=== PATIENT | female | born 1950 | race Caucasian/White ===

== ENCOUNTER 2021-09-17 16:08 | Inpatient (IN) | payer OTHER ==
[~2021-09-17] VITALS: Ht 165.1 cm; Wt 112.9 kg
--- NOTE | 2021-09-17 16:21 | NUR ---
CALLED [facility] REGARDING PT VACCINATION STATUS AND WAS NOTIFIED THAT THE PT HAS MODERNA BOTHE GIVEN IN THE MONTH OF NOVEMBER
[2021-09-17] MEDS ORDERED: IV NS 0.9% 1,000 ML BAG IV ONE (16:30)
[2021-09-17 16:38] LABS: ABG OXYGEN SATURATION 94.8 % (92.0-98.5); ABG PCO2 46.6 mmHg (35.0-45.0); ABG PH 7.413 (7.350-7.450); ABG PO2 77.9 mmHg (75.0-100.0); AaDO2 124.7 mmHg; COHb 0.6 % (0.5-1.5); MetHb 0.3 % (0.0-1.5); O2Hb 93.9 % (94.0-97.0); SITE, ABG Left Radial; VENT MODE, BG NASAL CANNULA
--- NOTE | 2021-09-17 16:50 | NUR ---
COVID ANTIGEN AND PCR COLLECTED AND SENT TO LAB. PROGRAM OFFICER AT PT'S BEDSIDE
--- NOTE | 2021-09-17 16:51 | NUR ---
DRYLAND FARMER TAKING PT TO CT VIA [facility]
[2021-09-17] MEDS ORDERED: LACT10SO3 PO (16:59)
[2021-09-17] MEDS ORDERED: ZOLP10TA2 PO (16:59)
[2021-09-17] MEDS ORDERED: MULT-24 PO (16:59)
[2021-09-17] MEDS ORDERED: EZET10TA16 PO (16:59)
[2021-09-17] MEDS ORDERED: HYDR-4076 PO (16:59)
[2021-09-17] MEDS ORDERED: DOCU-141 PO (16:59)
[2021-09-17] MEDS ORDERED: MIRABEGRON PO (16:59)
[2021-09-17] MEDS ORDERED: ALPR1TAB2 PO (16:59)
[2021-09-17] MEDS ORDERED: ASPI-1169 PO (16:59)
[2021-09-17] MEDS ORDERED: MAGN400O6 PO (16:59)
[2021-09-17] MEDS ORDERED: ACET-2605 PO (16:59)
[2021-09-17] MEDS ORDERED: FERR325T23 PO (16:59)
[2021-09-17] MEDS ORDERED: BISA10SU11 RC (16:59)
[2021-09-17] MEDS ORDERED: LAMO100T17 PO (16:59)
[2021-09-17] MEDS ORDERED: TRAZ300T2 PO (16:59)
[2021-09-17] MEDS ORDERED: NA P133E RC (16:59)
[2021-09-17] MEDS ORDERED: LEVO50TA8 PO (16:59)
[2021-09-17] MEDS ORDERED: FURO-145 PO (16:59)
[2021-09-17] MEDS ORDERED: MAGN400T26 PO (16:59)
[2021-09-17] MEDS ORDERED: FLUO40CA49 PO (16:59)
[2021-09-17] MEDS ORDERED: PANT40TA2 PO (16:59)
[2021-09-17] MEDS ORDERED: POLY17PO4 PO (16:59)
[2021-09-17] MEDS ORDERED: TIOT18CA3 IH (16:59)
[2021-09-17] MEDS ORDERED: ARIP10TA57 PO (16:59)
[2021-09-17] MEDS ORDERED: SENN-261 PO (16:59)
[2021-09-17] MEDS ORDERED: OLAN2.5T3 PO (16:59)
[2021-09-17] MEDS ORDERED: ALBU2.5V38 IH (16:59)
[2021-09-17] MEDS ORDERED: ARIP20TA20 PO (16:59)
[2021-09-17] MEDS ORDERED: ACET-868 PO (16:59)
[2021-09-17] MEDS ORDERED: IPRA0.2S9 IH (16:59)
[2021-09-17] MEDS ORDERED: HEPA50008 SQ (16:59)
[2021-09-17] MEDS ORDERED: HYDR-4303 PO (16:59)
--- NOTE | 2021-09-17 17:02 | NUR ---
PT RETURNED FROM CT
[2021-09-17 17:10] LABS: BASOPHILS # (AUTO) 0.1 K/uL (0.0-0.2); BASOPHILS % (AUTO) 0.9 % (0.0-2.0); EOSINOPHILS % (AUTO) 0.3 % (0.0-6.0); HEMATOCRIT 27 % (33-45); HEMOGLOBIN 8.6 g/dL (11.5-14.8); LYMPHOCYTES # (AUTO) 1.1 K/uL (0.8-4.8); LYMPHOCYTES % (AUTO) 11.1 % (20.0-44.0); MEAN CORPUSCULAR HGB CONC 32 g/dl (31.0-36.0); MEAN CORPUSCULAR VOLUME 95 fL (82-100); MONOCYTES # (AUTO) 1.1 K/uL (0.1-1.30); MONOCYTES % (AUTO) 11.5 % (2.0-12.0); NEUTROPHILS # (AUTO) 7.3 K/uL (1.8-8.9); NEUTROPHILS % (AUTO) 76.2 % (43.0-81.0); PLATELET COUNT (AUTO) 360 K/uL (150-450); RED BLOOD CELL COUNT(AUTO) 2.82 MIL/uL (4.0-5.2); WHITE BLOOD COUNT (AUTO) 9.6 K/uL (4.3-11.0)
--- NOTE | 2021-09-17 17:15 | NUR ---
F/C 16FR INSERTED; URINE COLLECTED AND SENT TO LAB
[2021-09-17 17:28] LABS: ALANINE AMINOTRANSFERASE 24 U/L (12-78); ALKALINE PHOSPHATASE 76 U/L (46-116); ASPARTATE AMINOTRANSFERASE 25 U/L (15-37); BILIRUBIN,DIRECT 0.2 mg/dL (0.0-0.2); BILIRUBIN,TOTAL 0.4 mg/dL (0.2-1.0); CALCIUM, SERUM 9.4 mg/dL (8.5-10.1); CARBON DIOXIDE 28 mmol/L (21-32); CHLORIDE 106 mmol/L (98-107); CREATININE 2.1 mg/dL (0.6-1.3); GLUCOSE 91 mg/dL (74-106); POTASSIUM 4.7 mmol/L (3.5-5.1); SODIUM SERUM 143 mmol/L (136-145); TOTAL PROTEIN, SERUM 7.4 g/dL (6.4-8.2); UREA NITROGEN, BLOOD 27 mg/dL (7-18)
[2021-09-17] MEDS ORDERED: DEXAMETHASONE SOD PHOSPHATE 10 MG/ML VIAL IV ONE (18:00)
[2021-09-17] MEDS ORDERED: DEXAMETHASONE SOD PHOSPHATE 10 MG/ML VIAL ONE (18:13)
[2021-09-17 18:19] LABS: D-DIMER 0.7 mg/L(FEU (0.17-0.50)
[2021-09-17 18:23] LABS: BILIRUBIN,URINE NEGATIVE (NEGATIVE); COLOR,URINE YELLOW (YELLOW); LEUKOCYTE ESTERASE ,URINE MODERATE (NEGATIVE); NITRITE, URINE NEGATIVE (NEGATIVE); PROTEIN,URINE TRACE mg/dl (NEGATIVE); UGLUCOSE NEGATIVE (NEGATIVE); UROBILINOGEN,URINE 0.2 EU/dL (0.2)
[2021-09-17 18:50] LABS: BACTERIA,URINE Many /HPF (None Seen); SQUAMOUS EPITHELIAL CELL,UR Moderate /HPF (None Seen)
[2021-09-17 18:51] LABS: RBC,URINE 21-50 /HPF (0-2)
--- NOTE | 2021-09-17 18:56 | NUR ---
INFLUENZA SWAB COLLECTED AND SENT TO LAB
[2021-09-17 19:00] LABS: C-REACTIVE PROTEIN 7.8 mg/dL (0.0-0.9)
[2021-09-17] MEDS ORDERED: PIPERACILLIN /TAZOBACTAM 3.375 G in IV D5W 50 ML IV ONE (19:00)
--- NOTE | 2021-09-17 19:03 | NUR ---
SPUTUM CULTURE COLLECTED BY MAY NAVARRO AND RN SENT TO LAB
[2021-09-17] MEDS ORDERED: PIPERACILLIN /TAZOBACTAM 3.375 G VIAL IV ONE (19:31)
[2021-09-17] MEDS ORDERED: OLANZAPINE 2.5 MG TABLET PO PRN (22:30)
[2021-09-17] MEDS ORDERED: POLYETHYLENE GLYCOL 3350 17 GM POWD.PACK PO PRN (22:30)
[2021-09-17] MEDS ORDERED: ALBUTEROL FS 2.5 MG/3 ML VIAL.NEB IH PRN (22:30)
[2021-09-17] MEDS ORDERED: IPRATROPIUM NEB FS 0.5 MG/2.5 ML AMPUL.NEB IH PRN (22:30)
[2021-09-17] MEDS ORDERED: HEPARIN SODIUM, PORCINE 5000 UNITS/1 ML VIAL ONE (22:40)
[2021-09-17] MEDS: HEPARIN SODIUM, PORCINE 5000 UNITS/1 ML VIAL SQ SCH (22:50)
[2021-09-17] MEDS ORDERED: Z GUARD REMEDY 4 OZ OINT TP PRN (23:00)
[2021-09-17] MEDS ORDERED: ONDANSETRON HCL/PF 4 MG/2 ML VIAL IVP PRN (23:00)
[2021-09-17] MEDS ORDERED: CEFTRIAXONE 1GM BAG (ER ONLY) 50 ML IV ONE (23:57)
[2021-09-18] MEDS: CEFTRIAXONE 1 G in IV D5W 50 ML IV SCH ×2 (00:45→21:38)
--- NOTE | 2021-09-18 01:18 | NUR ---
PT TOLERATING O2 3LPM AT 97%. LAC #18G S/L PATENT AND INTACT. F/C PATENT AND INTACT. PT SLEEPING AT THIS TIME. ENDORSED CARE TO MELODY VU.
[2021-09-18] MEDS ORDERED: IPRATROPIUM NEB FS 0.5 MG/2.5 ML AMPUL.NEB NEB SCH (01:30)
--- NOTE | 2021-09-18 01:30 | NUR ---
held atrovent per RT due to positive covid status
[2021-09-18 05:31] LABS: BASOPHILS % (AUTO) 0.4 % (0.0-2.0); EOSINOPHILS % (AUTO) 0.1 % (0.0-6.0); HEMATOCRIT 30 % (33-45); HEMOGLOBIN 9.3 g/dL (11.5-14.8); LYMPHOCYTES # (AUTO) 1.1 K/uL (0.8-4.8); LYMPHOCYTES % (AUTO) 10.4 % (20.0-44.0); MEAN CORPUSCULAR HGB CONC 32 g/dl (31.0-36.0); MEAN CORPUSCULAR VOLUME 95 fL (82-100); MONOCYTES # (AUTO) 0.9 K/uL (0.1-1.30); MONOCYTES % (AUTO) 7.9 % (2.0-12.0); NEUTROPHILS # (AUTO) 8.8 K/uL (1.8-8.9); NEUTROPHILS % (AUTO) 81.2 % (43.0-81.0); PLATELET COUNT (AUTO) 393 K/uL (150-450); RED BLOOD CELL COUNT(AUTO) 3.09 MIL/uL (4.0-5.2); WHITE BLOOD COUNT (AUTO) 10.8 K/uL (4.3-11.0)
[2021-09-18 05:42] LABS: CARBON DIOXIDE 29 mmol/L (21-32); CHLORIDE 106 mmol/L (98-107); CREATININE 1.8 mg/dL (0.6-1.3); GLUCOSE 118 mg/dL (74-106); MAGNESIUM 2.6 mg/dL (1.8-2.4); PHOSPHORUS 4.7 mg/dL (2.5-4.9); POTASSIUM 4.9 mmol/L (3.5-5.1); SODIUM SERUM 143 mmol/L (136-145); UREA NITROGEN, BLOOD 26 mg/dL (7-18)
[2021-09-18 05:45] LABS: CHOLESTEROL 232 mg/dL (<200); HDL CHOLESTEROL 51 mg/dL (40-60); LDL 154 mg/dL (0-99); TRIGLYCERIDES 93 mg/dL (30-150)
[2021-09-18 05:46] LABS: C-REACTIVE PROTEIN 10.6 mg/dL (0.0-0.9)
[2021-09-18] MEDS ORDERED: LEVOTHYROXINE SODIUM 50 MCG TABLET PO SCH (07:30)
[2021-09-18] MEDS: PANTOPRAZOLE 40 MG TABLET.DR PO SCH (07:46)
[2021-09-18] MEDS ORDERED: PANTOPRAZOLE 40 MG VIAL ONE (07:47)
[2021-09-18] MEDS ORDERED: LEVOTHYROXINE SODIUM 25 MCG TABLET ONE (07:47)
[2021-09-18] MEDS ORDERED: PANTOPRAZOLE 40 MG TABLET.DR PO ONE (07:48)
[2021-09-18] MEDS ORDERED: IPRATROPIUM BROMIDE 14 GM INHALER (or 12.9 GM) IH PRN (08:00)
[2021-09-18] MEDS ORDERED: ALBUTEROL SULFATE 8 GM HFA.AER.AD IH PRN (08:30)
[2021-09-18] MEDS ORDERED: MIRABEGRON 50 MG PO SCH (09:00)
[2021-09-18] MEDS ORDERED: DEXAMETHASONE SOD PHOSPHATE 10 MG/ML VIAL ONE (09:47)
[2021-09-18] MEDS ORDERED: ASPIRIN 81 MG TAB.CHEW ONE (09:48)
[2021-09-18] MEDS ORDERED: EZETIMIBE 10 MG TABLET ONE (09:48)
[2021-09-18] MEDS ORDERED: MULTIVIT W/MINERALS 1 TAB TABLET ONE (09:48)
[2021-09-18] MEDS ORDERED: DOCUSATE SODIUM 100 MG CAPSULE PO ONE (09:48)
[2021-09-18] MEDS ORDERED: HEPARIN SODIUM, PORCINE 5000 UNITS/1 ML VIAL ONE (09:49)
[2021-09-18] MEDS: HEPARIN SODIUM, PORCINE 5000 UNITS/1 ML VIAL SQ SCH ×2 (10:11→21:36)
[2021-09-18] MEDS: MULTIVITAMINS,THERAGRAN 1 UDTAB TABLET PO SCH (10:11)
[2021-09-18] MEDS: hydrALAZINE HCL 25 MG TABLET PO SCH ×3 (10:11→16:36)
[2021-09-18] MEDS: LamoTRIgine 100 MG TABLET PO SCH ×2 (10:11→16:36)
[2021-09-18] MEDS: DEXAMETHASONE SOD PHOSPHATE 4 MG/ML VIAL IV SCH (10:11)
[2021-09-18] MEDS: EZETIMIBE 10 MG TABLET PO SCH (10:11)
[2021-09-18] MEDS: DOCUSATE SODIUM 100 MG CAPSULE PO SCH ×2 (10:11→16:36)
[2021-09-18] MEDS: ASPIRIN 81 MG TAB.CHEW PO SCH (10:11)
[2021-09-18] MEDS: MAGNESIUM OXIDE 400 MG TABLET PO SCH ×2 (10:11→16:36)
[2021-09-18] MEDS: FERROUS SULFATE (325 MG) 325 MG/TAB TABLET PO SCH ×2 (10:11→16:33)
[2021-09-18] MEDS ORDERED: FUROSEMIDE 40 MG/4 ML VIAL IV ONE (10:30)
[2021-09-18] MEDS ORDERED: FUROSEMIDE 40 MG/4 ML VIAL ONE (11:11)
--- NOTE | 2021-09-18 12:30 | NUR ---
PT TRANSFERRED TO [facility]. BEDSIDE REPORT GIVEN TO CAROLANN VU FOR MERY. VSS.
--- NOTE | 2021-09-18 12:45 | NUR ---
RN ADMITTING NOTES RECEIVED PATIENT AWAKE, ALERT/ORIENTED X 2 WITH DX OF ALOC. VITAL SIGNS- TEMP-100.6, IA-76, RR-20, O2-91%, BP-141/57. PATIENT DENIES PAIN AT THE TIME. BREATHING EVEN AND UNLABORED, NO SOB OR ANY ACUTE DISTRESS NOTED AT THE TIME. PATIENT ON O2 4LPM VIA NC. IV ACCESS ON RIGHT HAND G#22, FLUSHED WELL, PATENT AND INTACT. PATIENT NOTED WITH BRUISES ON BILATERAL UPPER EXTREMITIES AND ABODMEN, SKIN TEAR ON RIGHT FOREARM AND REDNESS ON COCCY SCAR ON RIGHT BREST, ABSENCE OF NIPPLE. PHOTOS TAKEN AND PRINTED OUT. PATIENT ON FERNANDEZ CATH 16FR, PATENT AND INTACT DRAINING WELL. NO BELONGINGS WITH PATIENT. ALL NEEDS ATTENDED. KEPT PATIENT CLEAN, DRY AND COMFORTABLE. ALL SAFETY MEASURES IN PLACE. HOB ELEVATED BED IN LOWEST POSITION AND LOCKED WITH SIDERAILS UP. CALL LIGHT WITHIN REACH OF PATIENT. ALL APPLICABLE ISOLATION PRECAUTIONS IN PLACE. WILL CONTINUE TO MONTIOR PATIENT ACCORDINGLY.
[2021-09-18 16:00] VITALS: BP 158/67
--- NOTE | 2021-09-18 16:06 | NUR ---
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 INFORMED LISSETH STOCK SAW OPERATOR WITH ORDER FOR BACTROBAN OINT BID, NOTED AND CARRIED OUT.
--- NOTE | 2021-09-18 18:59 | NUR ---
RN CLOSING NOTES PT IN BED AWAKE, ALERT/OREITNED X 2. BREATHING EVEN AND UNLABORED NO SOB OR ANY DISTRESS NOTED. ON O2 4L/MIN VIA NC, TOLERATING WELL 92% . PATIENT IN STABLE CONDITION THROUGHOUT SHIFT. DENIES ANY PAIN AT THE TIME. IV ACCESS ON RIGHT HAND #22G INTACT AND PATENT. NO S/S OF INFILTRATIONS. ALL DUE MEDS GIVEN ORDERED. KEPT PATIENT CLEAN, DRY AND COMFORTABLE. ALL NEEDS MET AND ATTENDED. FERNANDEZ CATH INTACT AND PATENT W/ YELLOWISH/URINE. 1000 ML OF URINE. ALL APPLICABLE ISOLATIONS PRECAUTIONS IN PLACE. ALL SAFETY MEASURE IN PLACE. BED LOCKED AND IN LOW POSITION WITH SIDERAILS UP. CALL LIGHT WITHIN REACH OF PATIENT WILL ENDORSE TO ONCOMING NURSE FOR CONTINUITY OF CARE.
--- NOTE | 2021-09-18 19:10 | NUR ---
RN NOTES RECEIVED REPORT FROM MORNING RN. PATIENT IN BED A/O X2 WITH PERIODS OF CONFUSION. WITH IV ACCESS ON R HAND # 22 PATENT FLUSHES WELL. NS @ 50CC/HR STARTED. VITAL SIGNS TAKEN AND RECORDED NO DISTRESS NO SOB NOTED AFEBRILE. WITH FERNANDEZ CATHETED CONNECTED TPO URINE BAG PATENT DRAINING YELLOWISH URINE OUTPUT. PATIENT ON ISOLATION FOR COVID 19 RAPID TEST POSITIVE, MRSA POSITIVE. ALL SAGFETY PREACUTION IN PLACE AT ALL TIMES. HOB ELEVATED, CALL LIGHT WITHIN REACH. BOTH SIDERAILS UP FOR SAFETY. BED ON LOWEST POSITION AND LOCKED. WILL CONTINUE TO MONITOR.
[2021-09-18] MEDS: IPRATROPIUM BROMIDE 14 GM INHALER (or 12.9 GM) NEB SCH (19:30)
[2021-09-18 20:00] VITALS: BP 117/55
[2021-09-18] MEDS: IV NS 0.9% 1,000 ML IV PRN (20:09)
[2021-09-18] MEDS: MUPIROCIN OINT 2% 22 GM TUBE NS SCH (21:36)
[2021-09-19] VITALS: BP 102/56
[2021-09-19 04:00] VITALS: BP 111/61
[2021-09-19 06:10] LABS: BASOPHILS % (AUTO) 0.3 % (0.0-2.0); EOSINOPHILS % (AUTO) 0.4 % (0.0-6.0); HEMATOCRIT 24 % (33-45); HEMOGLOBIN 7.9 g/dL (11.5-14.8); LYMPHOCYTES # (AUTO) 0.7 K/uL (0.8-4.8); LYMPHOCYTES % (AUTO) 9.2 % (20.0-44.0); MEAN CORPUSCULAR HGB CONC 33 g/dl (31.0-36.0); MEAN CORPUSCULAR VOLUME 94 fL (82-100); MONOCYTES # (AUTO) 0.7 K/uL (0.1-1.30); MONOCYTES % (AUTO) 9.1 % (2.0-12.0); NEUTROPHILS # (AUTO) 6.1 K/uL (1.8-8.9); PLATELET COUNT (AUTO) 290 K/uL (150-450); RED BLOOD CELL COUNT(AUTO) 2.57 MIL/uL (4.0-5.2); WHITE BLOOD COUNT (AUTO) 7.6 K/uL (4.3-11.0)
[2021-09-19 06:31] LABS: ALANINE AMINOTRANSFERASE 24 U/L (12-78); ALBUMIN 2.6 g/dL (3.4-5.0); ALKALINE PHOSPHATASE 61 U/L (46-116); ASPARTATE AMINOTRANSFERASE 34 U/L (15-37); BILIRUBIN,DIRECT 0.1 mg/dL (0.0-0.2); BILIRUBIN,TOTAL 0.3 mg/dL (0.2-1.0); CALCIUM, SERUM 8.9 mg/dL (8.5-10.1); CARBON DIOXIDE 30 mmol/L (21-32); CHLORIDE 107 mmol/L (98-107); CREATININE 1.8 mg/dL (0.6-1.3); GLUCOSE 94 mg/dL (74-106); SODIUM SERUM 144 mmol/L (136-145); TOTAL PROTEIN, SERUM 6.8 g/dL (6.4-8.2); UREA NITROGEN, BLOOD 30 mg/dL (7-18)
--- NOTE | 2021-09-19 06:42 | NUR ---
RN NOTES PATIENT IN BED NO SIGNIFICANT CHANGES IN HEALTH CONDITION STILL ON OXYGEN INHALATION AT 4LPM VIA NC SATING 98%. STILL WITH FERNANDEZ INTACT. ALL DUE MEDS GIVEN ORDERED. ALL NEEDS ATTENDED. ALL SAFETY ,MEASURES IN PLACE AT ALL TIMES. HOB ELEVATED. CALL LIGHT WITHIN REACH. FREQUENT VISUAL MONITORING RENDERED. WILL CONTINUE TO MONITOR. ENDORSED.
--- NOTE | 2021-09-19 07:31 | NUR ---
RN MORNING NOTE PT RECEIVED IN BED WITH HOB SEMI FOWLERS. PT IS ON 4L O2 VIA NC SAT 98%. PT IS A/OX2 WITH PERIODS OF CONFUSION. PT HAS FC AND IS IN PLACE DRAINING URINE BY GRAVITY. PT IS ON CARDIAC LOW FAT DIET AND HAS IV ACCESS R HAND 22G INFUSING WITH NS @50ML/HR. BED IS LOCKED IN LOWEST POSITION X3 GUARD RAILS UP, CALL FOX IS WITHIN REACH, AND ALL HOSPITAL SAFETY PRECAUTIONS ARE IN PLACE. WILL CONTINUE TO MONITOR THIS SHIFT.
[2021-09-19 08:00] VITALS: BP 110/55
[2021-09-19] MEDS: LEVOTHYROXINE SODIUM 25 MCG TABLET PO SCH (08:17)
[2021-09-19] MEDS: PANTOPRAZOLE 40 MG TABLET.DR PO SCH (08:17)
[2021-09-19] MEDS: LamoTRIgine 100 MG TABLET PO SCH ×2 (08:18→17:28)
[2021-09-19] MEDS: MULTIVITAMINS,THERAGRAN 1 UDTAB TABLET PO SCH (08:18)
[2021-09-19] MEDS: FERROUS SULFATE (325 MG) 325 MG/TAB TABLET PO SCH ×2 (08:18→17:28)
[2021-09-19] MEDS: EZETIMIBE 10 MG TABLET PO SCH (08:18)
[2021-09-19] MEDS: DEXAMETHASONE SOD PHOSPHATE 4 MG/ML VIAL IV SCH (08:19)
[2021-09-19] MEDS: MAGNESIUM OXIDE 400 MG TABLET PO SCH ×2 (08:19→17:35)
[2021-09-19] MEDS: DOCUSATE SODIUM 100 MG CAPSULE PO SCH ×2 (08:19→17:28)
[2021-09-19] MEDS: MUPIROCIN OINT 2% 22 GM TUBE NS SCH ×2 (08:22→20:49)
[2021-09-19] MEDS: ASPIRIN 81 MG TAB.CHEW PO SCH (08:26)
--- NOTE | 2021-09-19 08:26 | NUR ---
RN NOTE ASPIRIN OMNICELL DRAWER CLOSED BEFORE i COULD TAKE OUT MEDICATION. LOGGED BACK INTO OMNICELL TO PULL OUT ASPIRIN. ONLY ONE ASPIRIN WAS TAKEN OUT FOR PT.
[2021-09-19] MEDS: hydrALAZINE HCL 25 MG TABLET PO SCH ×3 (09:00→17:00)
[2021-09-19] MEDS: HEPARIN SODIUM, PORCINE 5000 UNITS/1 ML VIAL SQ SCH ×2 (09:00→20:49)
--- NOTE | 2021-09-19 11:57 | NUR ---
RN NOTE PT HAS TEMP OF 100.3. TYLENOL ADMINISTERED.
[2021-09-19] MEDS: ACETAMINOPHEN 325 MG TABLET PO PRN (11:58)
[2021-09-19 12:00] VITALS: BP 119/44
[2021-09-19 16:00] VITALS: BP 92/52
[2021-09-19] MEDS: IV NS 0.9% 1,000 ML IV PRN (17:41)
--- NOTE | 2021-09-19 18:56 | NUR ---
RN CLOSING NOTE PT IS RESTING IN BED WITH HOB IN HIGH FOWLERS. PT IS ON 4L O2 VIA NC SAT 98%. PT IS A/OX3 WITH PERIODS OF CONFUSION. PT HAS FC AND IS IN PLACE DRAINING URINE BY GRAVITY. PT IS ON CARDIAC LOW FAT DIET AND HAS NEW R UA MIDLINE 18G MIDLINE INFUSING WITH NS @50ML/HR. BED IS LOCKED IN LOWEST POSITION X3 GUARD RAILS UP, CALL FOX IS WITHIN REACH, AND ALL HOSPITAL SAFETY PRECAUTIONS ARE IN PLACE. WILL ENDORSE TO CHIEF ENGINEER RESEARCH NURSE FOR MERY.
--- NOTE | 2021-09-19 19:30 | NUR ---
RN OPENING NOTE RECEIVED PATIENT IN BED. A/OX3. ON OXYGEN 4L/MIN VIA NASAL CANNULA. RESPIRATIONS ARE EVEN AND UNLABORED. NO S/S SOB NOTED. NO C/O PAIN AT THIS TIME. TELE MONITOR SINUS RHYTHM HR 80S. IN NO APPARENT DISTRESS. IV ACCESS IN TEN MIDLINE RUNNING NS@50ML/HR. FERNANDEZ CATHETER IS PRESENT DRAINING TO GRAVITY, URINE IS YELLOW. BED IS LOW AND LOCKED, HOB ELEVATED IN HIGH FOWLERS, SIDE RIAL CUSTODIAL X3, CALL LIGHT WITHIN REACH.
[2021-09-19 20:00] VITALS: BP 109/55
[2021-09-19] MEDS: IPRATROPIUM BROMIDE 14 GM INHALER (or 12.9 GM) NEB SCH (20:48)
--- NOTE | 2021-09-19 22:04 | NUR ---
RN NOTE - TRANSFER OF CARE REPORT GIVEN TO KARRI RN FOR CONTINUATION OF CARE.
--- NOTE | 2021-09-19 22:30 | NUR ---
RN OPENING NOTE RECEIVED PATIENT IN BED. A/OX3. ON OXYGEN 4L/MIN VIA NASAL CANNULA. RESPIRATIONS ARE EVEN AND UNLABORED. NO S/S SOB NOTED. NO C/O PAIN AT THIS TIME. TELE MONITOR SINUS RHYTHM IN 80S. PATIENT ON COVID ISOLATION PRECAUTIONS. ALL ENVIRONMENTAL MEASURES TAKEN. IN NO APPARENT DISTRESS. IV ACCESS IN TEN MIDLINE RUNNING NS@50ML/HR. FERNANDEZ CATHETER IS PRESENT DRAINING TO GRAVITY, URINE IS YELLOW. BED IS LOW AND LOCKED, HOB ELEVATED IN HIGH FOWLERS, SIDE RAILS UP X3, CALL LIGHT WITHIN REACH.
[2021-09-19] MEDS: CEFTRIAXONE 1 G in IV D5W 50 ML IV SCH (23:30)
[2021-09-20] VITALS: BP 119/63
[2021-09-20] MEDS: IPRATROPIUM BROMIDE 14 GM INHALER (or 12.9 GM) NEB SCH ×4 (01:30→21:18)
[2021-09-20 04:00] VITALS: BP 130/63
[2021-09-20 06:38] LABS: BASOPHILS % (AUTO) 0.2 % (0.0-2.0); EOSINOPHILS % (AUTO) 1.3 % (0.0-6.0); HEMATOCRIT 23 % (33-45); HEMOGLOBIN 7.6 g/dL (11.5-14.8); LYMPHOCYTES # (AUTO) 0.6 K/uL (0.8-4.8); LYMPHOCYTES % (AUTO) 10.2 % (20.0-44.0); MEAN CORPUSCULAR HGB CONC 33 g/dl (31.0-36.0); MEAN CORPUSCULAR VOLUME 94 fL (82-100); MONOCYTES # (AUTO) 0.4 K/uL (0.1-1.30); MONOCYTES % (AUTO) 7.7 % (2.0-12.0); NEUTROPHILS # (AUTO) 4.6 K/uL (1.8-8.9); NEUTROPHILS % (AUTO) 80.6 % (43.0-81.0); PLATELET COUNT (AUTO) 251 K/uL (150-450); RED BLOOD CELL COUNT(AUTO) 2.45 MIL/uL (4.0-5.2); WHITE BLOOD COUNT (AUTO) 5.7 K/uL (4.3-11.0)
[2021-09-20 07:10] LABS: CALCIUM, SERUM 8.4 mg/dL (8.5-10.1); CARBON DIOXIDE 26 mmol/L (21-32); CHLORIDE 108 mmol/L (98-107); CREATININE 1.5 mg/dL (0.6-1.3); GLUCOSE 89 mg/dL (74-106); POTASSIUM 4.2 mmol/L (3.5-5.1); SODIUM SERUM 144 mmol/L (136-145); UREA NITROGEN, BLOOD 30 mg/dL (7-18)
--- NOTE | 2021-09-20 07:18 | NUR ---
RN CLOSING NOTE PT IS RESTING IN BED WITH HOB IN HIGH FOWLERS. PT IS ON 4L O2 VIA NC SAT 96%. PT IS A/OX3 WITH PERIODS OF CONFUSION. PT HAS FC AND IS IN PLACE DRAINING URINE BY GRAVITY. TEN 50/ML HR NO CHANGES DURING SHIFT, ALL ISOLATION AND SAFETY MEASURES TAKEN. WILL ENDORSE TO ONCOMING NURSE FOR PLAN OF CARE.
--- NOTE | 2021-09-20 07:24 | NUR ---
RN OPENING NOTE RECEIVED PT RESTING IN BED A/0 X2-3 WITH PERIODS OF CONFUSION PT IS ON 4L O2 VIA NC SAT 96%. TELE READING SR HR72, PT HAS A FERNANDEZ CATH IN PLACE AND BELOW THE PT, DRAINING YELLOW URINE BY GRAVITY. TEN RUNNING 50/ML HR , ISOLATION PRECAUTIONS IN PLACE, SAFETY MEASURES IMPLEMENTED BED LOCKED AND IN LOWEST POSITION CALL LIGHT WISHING, REACH WILL CONTINUE TO MONITOR.
[2021-09-20 08:00] VITALS: BP 151/47
[2021-09-20] MEDS: PANTOPRAZOLE 40 MG TABLET.DR PO SCH (08:57)
[2021-09-20] MEDS: LEVOTHYROXINE SODIUM 25 MCG TABLET PO SCH (08:58)
[2021-09-20] MEDS: ASPIRIN 81 MG TAB.CHEW PO SCH (08:58)
[2021-09-20] MEDS: FERROUS SULFATE (325 MG) 325 MG/TAB TABLET PO SCH ×2 (08:58→16:10)
[2021-09-20] MEDS: MULTIVITAMINS,THERAGRAN 1 UDTAB TABLET PO SCH (08:58)
[2021-09-20] MEDS: MAGNESIUM OXIDE 400 MG TABLET PO SCH ×2 (08:58→16:10)
[2021-09-20] MEDS: hydrALAZINE HCL 25 MG TABLET PO SCH ×3 (08:58→16:10)
[2021-09-20] MEDS: LamoTRIgine 100 MG TABLET PO SCH ×2 (08:58→16:10)
[2021-09-20] MEDS: DOCUSATE SODIUM 100 MG CAPSULE PO SCH ×2 (08:58→16:10)
[2021-09-20] MEDS: EZETIMIBE 10 MG TABLET PO SCH (08:58)
[2021-09-20] MEDS: DEXAMETHASONE SOD PHOSPHATE 4 MG/ML VIAL IV SCH (08:59)
[2021-09-20] MEDS: MUPIROCIN OINT 2% 22 GM TUBE NS SCH ×2 (09:08→21:17)
[2021-09-20] MEDS: HEPARIN SODIUM, PORCINE 5000 UNITS/1 ML VIAL SQ SCH ×2 (09:08→21:36)
--- NOTE | 2021-09-20 10:30 | NUR ---
RN NOTE PER DOCTOR IS OK TO HOLD COUMADIN INR 5.38
[2021-09-20 12:00] VITALS: BP 147/41
[2021-09-20] MEDS: DOXYCYCLINE 100 MG in IV D5W 100 ML IV SCH ×2 (15:32→21:16)
[2021-09-20 16:00] VITALS: BP 134/49
[2021-09-20] MEDS ORDERED: REMDESIVIR (CHARGED) 200 MG, *LOADING DOSE 1 EA in IV NS 0.9% 210 ML IV ONE (17:00)
[2021-09-20] MEDS: IV NS 0.9% 1,000 ML IV PRN (18:23)
--- NOTE | 2021-09-20 18:41 | NUR ---
RN CLOSING NOTE PT REMAINS RESTING IN BED A/0 X2-3 WITH PERIODS OF CONFUSION PT IS ON 4L O2 VIA NC SAT 96%. BREATHING EVEN AND UNLABORED, TELE READING SR HR72, PT HAS A FERNANDEZ CATH IN PLACE AND BELOW THE PT, DRAINING YELLOW URINE BY GRAVITY OUT PUT 1400. TEN RUNNING SN 50/ML HR , REMDESIVIR STARTED AND TOLERATED WELL, ISOLATION PRECAUTIONS IN PLACE, SAFETY MEASURES IMPLEMENTED BED LOCKED AND IN LOWEST POSITION CALL LIGHT WITHIN, REACH WILL ENDORSE TO HAND SALTERDOORPERSON OR LUGGAGE PORTER
--- NOTE | 2021-09-20 19:43 | NUR ---
RN NOTE RECEIVED PATIENT IN BED, AWAKE, ALERT, AND VERBALLY RESPONSIVE. AOX2. BREATHING NOTED WITH MILD SHORTNESS OF BREATH. ON OXYGEN AT 4L/MIN VIA NASAL CANNULA. SKIN WARM AND DRY. NOTED WITH RIGHT UPPER ARM MIDLINE RUNNING NS AT 50 ML/HR. NOTED WITH FERNANDEZ CATHETER DRAINING YELLOW URINE. NO BLEEDING NOTED AT THIS TIME. BED LOW, IN LOCKED POSITION. CALL LIGHT WITHIN REACH.
[2021-09-20 20:00] VITALS: BP 148/73
--- NOTE | 2021-09-20 21:01 | NUR ---
RN NOTE RIGHT UPPER ARM MIDLINE FLUSHES WITH RESISTANCE. NO BLOOD RETURN DESPITE ARM REPOSITIONING. INSERTED PERIPHERAL IV 22G ON RIGHT WRIST. PATENT WITH GOOD BLOOD RETURN. CONTINUED TO RUN NORMAL SALINE AT 50 CC/HR. NO INFILTRATION NOTED AT THIS TIME WILL CONTINUE TO MONITOR.
--- NOTE | 2021-09-20 21:20 | NUR ---
RN NOTE PATIENT COMPLAINING OF FEELING NAUSEA. NO EMESIS PRESENT. ADMINISTERED ZOFRAN PER MD OVER VIA IV PUSH. PROVIDED WITH EMESIS BASIN. HOB ELEVATED. WILL CONTINUE TO MONITOR.
[2021-09-20] MEDS: CEFTRIAXONE 1 G in IV D5W 50 ML IV SCH (22:49)
[2021-09-21] VITALS: BP 121/59
[2021-09-21] MEDS: IPRATROPIUM BROMIDE 14 GM INHALER (or 12.9 GM) NEB SCH ×4 (01:30→20:20)
[2021-09-21 04:00] VITALS: BP 121/57
[2021-09-21] MEDS: IV NS 0.9% 1,000 ML IV PRN (05:56)
--- NOTE | 2021-09-21 07:30 | NUR ---
RN NOTE RECEIVED PT RESTING IN BED A/0 X2-3 WITH PERIODS OF CONFUSION PT IS ON 4L O2 VIA NC SAT 96%. TELE READING SR HR72, PT HAS A FERNANDEZ CATH IN PLACE AND BELOW THE PT, DRAINING YELLOW URINE BY GRAVITY. RIGHT UPPER ARM MIDLINE FLUSHES WITH RESISTANCE. NO BLOOD RETURN DESPITE ARM REPOSITIONING. R WRIST RUNING AT 50/ML HR , ISOLATION PRECAUTIONS IN PLACE, SAFETY MEASURES IMPLEMENTED BED LOCKED AND IN LOWEST POSITION CALL LIGHT WISHING, REACH WILL CONTINUE TO MONITOR.
[2021-09-21] MEDS: PANTOPRAZOLE 40 MG TABLET.DR PO SCH (07:52)
[2021-09-21] MEDS: LEVOTHYROXINE SODIUM 25 MCG TABLET PO SCH (07:52)
[2021-09-21 08:00] VITALS: BP 103/31
[2021-09-21] MEDS: HEPARIN SODIUM, PORCINE 5000 UNITS/1 ML VIAL SQ SCH ×2 (08:01→21:26)
[2021-09-21] MEDS: ASPIRIN 81 MG TAB.CHEW PO SCH (08:01)
[2021-09-21] MEDS: DOCUSATE SODIUM 100 MG CAPSULE PO SCH ×2 (08:02→16:56)
[2021-09-21] MEDS: MAGNESIUM OXIDE 400 MG TABLET PO SCH ×2 (08:02→16:56)
[2021-09-21] MEDS: LamoTRIgine 100 MG TABLET PO SCH ×2 (08:02→16:56)
[2021-09-21] MEDS: EZETIMIBE 10 MG TABLET PO SCH (08:02)
[2021-09-21] MEDS: FERROUS SULFATE (325 MG) 325 MG/TAB TABLET PO SCH ×2 (08:02→16:56)
[2021-09-21] MEDS: MUPIROCIN OINT 2% 22 GM TUBE NS SCH ×2 (08:03→21:25)
[2021-09-21] MEDS: hydrALAZINE HCL 25 MG TABLET PO SCH ×3 (08:05→16:57)
[2021-09-21] MEDS: DEXAMETHASONE SOD PHOSPHATE 10 MG/ML VIAL IV SCH (08:08)
[2021-09-21] MEDS: DOXYCYCLINE 100 MG in IV D5W 100 ML IV SCH ×2 (08:08→21:25)
[2021-09-21] MEDS: MULTIVITAMINS,THERAGRAN 1 UDTAB TABLET PO SCH (08:14)
--- NOTE | 2021-09-21 09:00 | NUR ---
RN NOTE HOLD HYDRALAZINE DUE TO LOW BP 103/31 AND HR 57, NOTIFIED CHARGE NURSE MARY ELLEN
[2021-09-21 09:03] LABS: BASOPHILS % (AUTO) 0.4 % (0.0-2.0); EOSINOPHILS % (AUTO) 1.4 % (0.0-6.0); HEMATOCRIT 24 % (33-45); HEMOGLOBIN 7.6 g/dL (11.5-14.8); LYMPHOCYTES # (AUTO) 0.8 K/uL (0.8-4.8); LYMPHOCYTES % (AUTO) 11.6 % (20.0-44.0); MEAN CORPUSCULAR HGB CONC 32 g/dl (31.0-36.0); MEAN CORPUSCULAR VOLUME 95 fL (82-100); MONOCYTES # (AUTO) 0.4 K/uL (0.1-1.30); MONOCYTES % (AUTO) 5.9 % (2.0-12.0); NEUTROPHILS # (AUTO) 5.4 K/uL (1.8-8.9); NEUTROPHILS % (AUTO) 80.7 % (43.0-81.0); PLATELET COUNT (AUTO) 238 K/uL (150-450); RED BLOOD CELL COUNT(AUTO) 2.49 MIL/uL (4.0-5.2); WHITE BLOOD COUNT (AUTO) 6.7 K/uL (4.3-11.0)
[2021-09-21 09:09] LABS: ALANINE AMINOTRANSFERASE 37 U/L (12-78); ALBUMIN 2.4 g/dL (3.4-5.0); ALKALINE PHOSPHATASE 55 U/L (46-116); ASPARTATE AMINOTRANSFERASE 53 U/L (15-37); BILIRUBIN,DIRECT 0.1 mg/dL (0.0-0.2); BILIRUBIN,TOTAL 0.3 mg/dL (0.2-1.0); CALCIUM, SERUM 8.8 mg/dL (8.5-10.1); CARBON DIOXIDE 26 mmol/L (21-32); CHLORIDE 107 mmol/L (98-107); CREATININE 1.5 mg/dL (0.6-1.3); GLUCOSE 78 mg/dL (74-106); POTASSIUM 4.1 mmol/L (3.5-5.1); SODIUM SERUM 143 mmol/L (136-145); TOTAL PROTEIN, SERUM 6.6 g/dL (6.4-8.2); UREA NITROGEN, BLOOD 28 mg/dL (7-18)
[2021-09-21 12:00] VITALS: BP 129/29
--- NOTE | 2021-09-21 12:00 | NUR ---
RN NOTE HYDRALAZIN HOLD PER MD LISSETH CANNON, DUE TO LOW BP 129/29. CHARGE NURSE MARY ELLEN NOTIFIED
[2021-09-21 16:00] VITALS: BP 139/51
--- NOTE | 2021-09-21 16:58 | NUR ---
RN NOTE HYDRALAZIN HOLD PER MD LISSETH CANNON, DUE TO LOW BP 139/51. CHARGE NURSE MARY ELLEN NOTIFIED.
[2021-09-21] MEDS: REMDESIVIR (CHARGED) 100 MG in IV NS 0.9% 100 ML IV SCH (17:23)
--- NOTE | 2021-09-21 19:14 | NUR ---
RN CLOSING NOTE PT REMAINS RESTING IN BED A/0 X2-3 WITH PERIODS OF CONFUSION PT IS ON 4L O2 VIA NC SAT 96%. BREATHING EVEN AND UNLABORED, PT HAS A FERNANDEZ CATH IN PLACE AND BELOW THE PT, DRAINING YELLOW URINE BY GRAVITY OUT PUT 1000. TEN flushing but has some resistance, pt pull out right wrist, iINSERT IV AT AC AND RUNNING NS 50/ML HR , REMDESIVIR STARTED AND TOLERATED WELL, ISOLATION PRECAUTIONS IN PLACE, SAFETY MEASURES IMPLEMENTED BED LOCKED AND IN LOWEST POSITION CALL LIGHT WITHIN, REACH WILL ENDORSE TO DRESS SHOE INSPECTORDISTRICT COURT JUDGE
[2021-09-21 20:00] VITALS: BP 130/47
--- NOTE | 2021-09-21 20:25 | NUR ---
RN OPENING NOTES; RECEIVED PATIENT AWAKE IN BED, BED IN LOW POSITION, CALL LIGHTS WITHIN REACH, NO COMPLAIN OF PAIN AND DISCOMFORT AT THI TIME. PATIENT ON IV LINE AT TEN WITH ONGOING 0.9NSS AT 50 ML PER HOUR INFUSING WELL, PATIENT ON FERNANDEZ CATHETER AT 150ML URINE OUTPUT, PATIENT KEPT CLEAN AND DRY ALL NEEDS MET, WILL CONTINUE TO MONITOR.
[2021-09-21] MEDS: CEFTRIAXONE 1 G in IV D5W 50 ML IV SCH (23:33)
[2021-09-22 00:14] VITALS: BP 130/47
[2021-09-22] MEDS: IPRATROPIUM BROMIDE 14 GM INHALER (or 12.9 GM) NEB SCH ×4 (01:57→18:30)
[2021-09-22 04:00] VITALS: BP 144/46
--- NOTE | 2021-09-22 06:06 | NUR ---
RN CLOSING NOTE: PATIENT SLEEP IN BED COMFORTABLY, AROUSABLE TO VERBAL STIMULI, BED IN LOW POSITION, CALL LIGHTS WITHIN REACH NO COMPLAIN OF PAIN AND DISCOMFORT AT THIS TIME. PATIENT ON IV LINE AT RT UPPER MIDLINE AND TEN#22 WITH ONGOING NSS@50ML PER HOUR INFUSING WELL, ON FERNANDEZ CATHETER WITH 300CC URINE OUTPUT, PATIENT KEPT CLEAN AND DRY, ALL NEEDS ATTENDED , ENDORSE TO INCOMING SHIFT.
[2021-09-22 07:19] LABS: BASOPHILS % (AUTO) 0.3 % (0.0-2.0); EOSINOPHILS % (AUTO) 1.6 % (0.0-6.0); HEMATOCRIT 22 % (33-45); LYMPHOCYTES # (AUTO) 0.7 K/uL (0.8-4.8); LYMPHOCYTES % (AUTO) 13.4 % (20.0-44.0); MEAN CORPUSCULAR HGB CONC 33 g/dl (31.0-36.0); MEAN CORPUSCULAR VOLUME 94 fL (82-100); MONOCYTES # (AUTO) 0.3 K/uL (0.1-1.30); MONOCYTES % (AUTO) 6.3 % (2.0-12.0); NEUTROPHILS # (AUTO) 4.1 K/uL (1.8-8.9); NEUTROPHILS % (AUTO) 78.4 % (43.0-81.0); PLATELET COUNT (AUTO) 206 K/uL (150-450); WHITE BLOOD COUNT (AUTO) 5.2 K/uL (4.3-11.0)
--- NOTE | 2021-09-22 07:30 | NUR ---
RN OPENING NOTES RECEIVED PATIENT AWAKE IN BED, BED IN LOW POSITION, CALL LIGHTS WITHIN REACH, NO COMPLAIN OF PAIN AND DISCOMFORT AT THI TIME. PATIENT ON IV LINE AT TEN WITH ONGOING 0.9NSS AT 50 ML PER HOUR INFUSING WELL, PATIENT ON FERNANDEZ CATHETER AT 150ML URINE OUTPUT, PATIENT KEPT CLEAN AND DRY ALL NEEDS MET, WILL CONTINUE TO MONITOR.
[2021-09-22 08:00] VITALS: BP 114/45
[2021-09-22] MEDS: MAGNESIUM OXIDE 400 MG TABLET PO SCH ×2 (08:14→17:02)
[2021-09-22] MEDS: LamoTRIgine 100 MG TABLET PO SCH ×2 (08:14→17:02)
[2021-09-22] MEDS: MULTIVITAMINS,THERAGRAN 1 UDTAB TABLET PO SCH (08:15)
[2021-09-22] MEDS: FERROUS SULFATE (325 MG) 325 MG/TAB TABLET PO SCH ×2 (08:15→17:02)
[2021-09-22] MEDS: PANTOPRAZOLE 40 MG TABLET.DR PO SCH (08:15)
[2021-09-22] MEDS: ASPIRIN 81 MG TAB.CHEW PO SCH (08:15)
[2021-09-22] MEDS: EZETIMIBE 10 MG TABLET PO SCH (08:15)
[2021-09-22] MEDS: LEVOTHYROXINE SODIUM 25 MCG TABLET PO SCH (08:15)
[2021-09-22] MEDS: DOCUSATE SODIUM 100 MG CAPSULE PO SCH ×2 (08:15→17:03)
[2021-09-22] MEDS: hydrALAZINE HCL 25 MG TABLET PO SCH ×3 (08:16→17:02)
[2021-09-22] MEDS: HEPARIN SODIUM, PORCINE 5000 UNITS/1 ML VIAL SQ SCH ×2 (08:18→21:00)
--- NOTE | 2021-09-22 08:18 | NUR ---
RN NOTES HELD 0900 DOSE OF HEPARIN. PT HGB 7.0
[2021-09-22] MEDS: DEXAMETHASONE SOD PHOSPHATE 10 MG/ML VIAL IV SCH (08:20)
[2021-09-22 08:41] LABS: ALANINE AMINOTRANSFERASE 46 U/L (12-78); ALBUMIN 2.3 g/dL (3.4-5.0); ALKALINE PHOSPHATASE 53 U/L (46-116); ASPARTATE AMINOTRANSFERASE 62 U/L (15-37); BILIRUBIN,DIRECT 0.1 mg/dL (0.0-0.2); BILIRUBIN,TOTAL 0.2 mg/dL (0.2-1.0); CALCIUM, SERUM 8.3 mg/dL (8.5-10.1); CARBON DIOXIDE 26 mmol/L (21-32); CHLORIDE 109 mmol/L (98-107); CREATININE 1.4 mg/dL (0.6-1.3); GLUCOSE 86 mg/dL (74-106); POTASSIUM 3.8 mmol/L (3.5-5.1); SODIUM SERUM 144 mmol/L (136-145); TOTAL PROTEIN, SERUM 6.3 g/dL (6.4-8.2); UREA NITROGEN, BLOOD 24 mg/dL (7-18)
[2021-09-22] MEDS: MUPIROCIN OINT 2% 22 GM TUBE NS SCH ×2 (08:43→21:47)
[2021-09-22] MEDS: DOXYCYCLINE 100 MG in IV D5W 100 ML IV SCH ×2 (08:46→21:47)
[2021-09-22 12:00] VITALS: BP 114/45
--- NOTE | 2021-09-22 13:48 | NUR ---
RN NOTES NOTIFIED BY LAB OF PT. HGB LEVEL OF 7.0. NOTIFIED MD. NO ORDERS AT THIS TIME.
[2021-09-22 13:56] LABS: EOSINOPHILS % (MANUAL) 1 % (0-4); LYMPHOCYTES % (MANUAL) 14 % (16-48); MONOCYTES % (MANUAL) 6 % (0-11.0); NEUTROPHILS % (MANUAL) 79 (42-76)
[2021-09-22 16:00] VITALS: BP 119/43
[2021-09-22] MEDS: REMDESIVIR (CHARGED) 100 MG in IV NS 0.9% 100 ML IV SCH (17:02)
--- NOTE | 2021-09-22 19:20 | NUR ---
RN CLOSING NOTE PATIENT RESTING IN BED COMFORTABLY, AROUSABLE TO VERBAL STIMULI, BED IN LOW POSITION, CALL LIGHTS WITHIN REACH, NO COMPLAIN OF PAIN AND DISCOMFORT AT THIS TIME. PATIENT ON IV LINE AT RT UPPER MIDLINE AND TEN#22. ALL SAFETY MEASURES IN PLACE, PATIENT KEPT CLEAN AND DRY, ALL NEEDS ATTENDED , WILL ENDORSE TO ONCOMING MATERIAL REQUIREMENTS PLANNING MANAGER.
[2021-09-22 20:00] VITALS: BP 120/49
--- NOTE | 2021-09-22 21:51 | NUR ---
RN NOTES HELD 2100 DOSE OF HEPARIN DUE TO PT HGB 7.0
[2021-09-22] MEDS: CEFTRIAXONE 1 G in IV D5W 50 ML IV SCH (23:21)
[2021-09-23 04:00] VITALS: BP 152/63
--- NOTE | 2021-09-23 06:00 | NUR ---
RN NOTES, PATIENT NOTED THAT SHE PULLED IV/MIDLINE, NO BLEEDING NOTED, PATIENT PULLING ALSO O2 TUBING, REDIRECTION OF BEHAVIOR PROVIDED, PATIENT STILL PULLING O2 TUBING, INFORMED LUPE LITERARY AGENT AND REPLIED WITH NEW ORDER FOR MIDLINE INSERTION AND BILATERAL SOFT WRIST RESTRAINS, OTHERWISE NO SIGNIFICANT CHANGE IN CONDITION DURING THE NIGHT.
[2021-09-23 06:32] LABS: BASOPHILS % (AUTO) 0.1 % (0.0-2.0); EOSINOPHILS % (AUTO) 2.7 % (0.0-6.0); HEMATOCRIT 22 % (33-45); HEMOGLOBIN 7.2 g/dL (11.5-14.8); LYMPHOCYTES # (AUTO) 1.2 K/uL (0.8-4.8); LYMPHOCYTES % (AUTO) 18.9 % (20.0-44.0); MEAN CORPUSCULAR HGB CONC 32 g/dl (31.0-36.0); MEAN CORPUSCULAR VOLUME 94 fL (82-100); MONOCYTES # (AUTO) 0.5 K/uL (0.1-1.30); MONOCYTES % (AUTO) 7.3 % (2.0-12.0); NEUTROPHILS # (AUTO) 4.6 K/uL (1.8-8.9); PLATELET COUNT (AUTO) 212 K/uL (150-450); RED BLOOD CELL COUNT(AUTO) 2.36 MIL/uL (4.0-5.2); WHITE BLOOD COUNT (AUTO) 6.5 K/uL (4.3-11.0)
[2021-09-23 06:41] LABS: ALANINE AMINOTRANSFERASE 54 U/L (12-78); ALBUMIN 2.3 g/dL (3.4-5.0); ALKALINE PHOSPHATASE 56 U/L (46-116); ASPARTATE AMINOTRANSFERASE 59 U/L (15-37); BILIRUBIN,TOTAL 0.2 mg/dL (0.2-1.0); CARBON DIOXIDE 26 mmol/L (21-32); CHLORIDE 109 mmol/L (98-107); CREATININE 1.4 mg/dL (0.6-1.3); GLUCOSE 77 mg/dL (74-106); MAGNESIUM 2.4 mg/dL (1.8-2.4); PHOSPHORUS 2.4 mg/dL (2.5-4.9); SODIUM SERUM 144 mmol/L (136-145); TOTAL PROTEIN, SERUM 6.3 g/dL (6.4-8.2); UREA NITROGEN, BLOOD 24 mg/dL (7-18)
[2021-09-23 06:48] LABS: ALBUMIN 2.3 g/dL (3.4-5.0); BILIRUBIN,DIRECT 0.1 mg/dL (0.0-0.2); BILIRUBIN,TOTAL 0.3 mg/dL (0.2-1.0); TOTAL PROTEIN, SERUM 6.3 g/dL (6.4-8.2)
--- NOTE | 2021-09-23 07:20 | NUR ---
RN OPENING NOTES RECEIVED PATIENT AWAKE IN BED, BED IN LOW POSITION, CALL LIGHTS WITHIN REACH, NO COMPLAIN OF PAIN AND DISCOMFORT AT THI TIME. PATIENT ON IV LINE AT L HAND #22 WITH ONGOING 0.9NSS AT 50 ML PER HOUR INFUSING WELL, PATIENT KEPT CLEAN AND DRY, ALL NEEDS MET, ALL SAFETY MEASURES IN PLACE. WILL CONTINUE TO MONITOR.
[2021-09-23] MEDS: LEVOTHYROXINE SODIUM 25 MCG TABLET PO SCH (07:31)
[2021-09-23] MEDS: PANTOPRAZOLE 40 MG TABLET.DR PO SCH (07:31)
[2021-09-23 08:00] VITALS: BP 171/76
[2021-09-23] MEDS: DEXAMETHASONE SOD PHOSPHATE 10 MG/ML VIAL IV SCH (08:24)
[2021-09-23] MEDS: LamoTRIgine 100 MG TABLET PO SCH ×2 (08:25→16:12)
[2021-09-23] MEDS: MULTIVITAMINS,THERAGRAN 1 UDTAB TABLET PO SCH (08:25)
[2021-09-23] MEDS: ASPIRIN 81 MG TAB.CHEW PO SCH (08:25)
[2021-09-23] MEDS: MAGNESIUM OXIDE 400 MG TABLET PO SCH ×2 (08:25→16:12)
[2021-09-23] MEDS: DOCUSATE SODIUM 100 MG CAPSULE PO SCH ×2 (08:25→16:12)
[2021-09-23] MEDS: EZETIMIBE 10 MG TABLET PO SCH (08:26)
[2021-09-23] MEDS: FERROUS SULFATE (325 MG) 325 MG/TAB TABLET PO SCH ×2 (08:26→16:12)
[2021-09-23] MEDS: HEPARIN SODIUM, PORCINE 5000 UNITS/1 ML VIAL SQ SCH ×2 (08:28→21:00)
[2021-09-23] MEDS: MUPIROCIN OINT 2% 22 GM TUBE NS SCH ×2 (08:29→21:05)
[2021-09-23] MEDS: hydrALAZINE HCL 25 MG TABLET PO SCH ×3 (08:41→16:12)
[2021-09-23] MEDS: DOXYCYCLINE 100 MG in IV D5W 100 ML IV SCH (08:43)
[2021-09-23 09:24] VITALS: BP 128/42
[2021-09-23] MEDS ORDERED: FUROSEMIDE 20 MG/2 ML VIAL IV SCH (09:30)
[2021-09-23 12:00] VITALS: BP 129/48
[2021-09-23 16:00] VITALS: BP 153/82
[2021-09-23] MEDS ORDERED: K PHOS NEUTRAL 250 MG TABLET PO ONE (16:00)
[2021-09-23] MEDS: ACETAMINOPHEN 325 MG TABLET PO PRN (16:28)
[2021-09-23] MEDS: REMDESIVIR (CHARGED) 100 MG in IV NS 0.9% 100 ML IV SCH (17:13)
--- NOTE | 2021-09-23 19:09 | NUR ---
RN CLOSING NOTE PATIENT RESTING IN BED COMFORTABLY, RESPONDS TO VERBAL STIMULI, BED IN LOW POSITION, CALL LIGHTS WITHIN REACH, NO COMPLAIN OF PAIN AND DISCOMFORT AT THIS TIME. PATIENT ON IV LINE AT RT UPPER MIDLINE AND TEN#22. ALL SAFETY MEASURES IN PLACE, PATIENT KEPT CLEAN AND DRY, ALL NEEDS ATTENDED , WILL ENDORSE TO ONCOMING CELLAR WORKER.
[2021-09-23 20:00] VITALS: BP 159/59
[2021-09-23] MEDS: DOXYCYCLINE HYCLATE (100 MG) 100 MG TABLET PO SCH (21:05)
--- NOTE | 2021-09-23 21:07 | NUR ---
RN NOTES HELD 2100 DOSE OF HEPARIN DUE TO PT HGB 7.2
[2021-09-23] MEDS: CEFTRIAXONE 1 G in IV D5W 50 ML IV SCH (23:40)
[2021-09-24 04:00] VITALS: BP 159/62
--- NOTE | 2021-09-24 07:20 | NUR ---
RN CLOSING NOTES, PATIENT ON 3L SIMPLE MASK WITH NO SIGNS OF DISTRESS OR LABORED BREATHING, NO SIGNIFICANT CHANGE IN CONDITION DURING THE NIGHT, BED IS LOCKED IN THE LOWEST POSITION, S/R OF BED X2 UP, CALL LIGHT WITHIN REACH, ALL SAFETY PRECAUTIONS IN PLACED, ISOLATION PRECAUTIONS IN PLACE, ON BILATERAL RESTRAINS, NO ABNORMALITY NOTED, NO CIRCULATION COMPROMISED, NO ENDORSED TO EFRAIN VU FOR CONTINUATION OF CARE.
[2021-09-24] MEDS: PANTOPRAZOLE 40 MG TABLET.DR PO SCH (07:27)
[2021-09-24] MEDS: LEVOTHYROXINE SODIUM 25 MCG TABLET PO SCH (07:27)
[2021-09-24 07:28] LABS: CALCIUM, SERUM 8.9 mg/dL (8.5-10.1); CREATININE 1.3 mg/dL (0.6-1.3); POTASSIUM 3.9 mmol/L (3.5-5.1)
--- NOTE | 2021-09-24 07:41 | NUR ---
RN OPENING NOTES RECEIVED PATIENT SLEEPING IN BED COMFORTABLY, BED IN LOW POSITION, CALL LIGHTS WITHIN REACH, NO S/S OF SOB OR COMPLAINS OF PAIN AND DISCOMFORT AT THIS TIME. PATIENT ON IV LINE AT L UA MIDLINE WITH ONGOING 0.9NSS AT 50 ML PER HOUR INFUSING WELL, PATIENT KEPT CLEAN AND DRY, ALL NEEDS MET, ALL SAFETY MEASURES IN PLACE. WILL CONTINUE TO MONITOR.
[2021-09-24 07:48] LABS: BASOPHILS % (AUTO) 0.4 % (0.0-2.0); EOSINOPHILS % (AUTO) 2.6 % (0.0-6.0); HEMATOCRIT 23 % (33-45); HEMOGLOBIN 7.6 g/dL (11.5-14.8); LYMPHOCYTES # (AUTO) 1.1 K/uL (0.8-4.8); LYMPHOCYTES % (AUTO) 15.6 % (20.0-44.0); MEAN CORPUSCULAR HGB CONC 32 g/dl (31.0-36.0); MEAN CORPUSCULAR VOLUME 93 fL (82-100); MONOCYTES # (AUTO) 0.6 K/uL (0.1-1.30); MONOCYTES % (AUTO) 7.9 % (2.0-12.0); NEUTROPHILS # (AUTO) 5.3 K/uL (1.8-8.9); NEUTROPHILS % (AUTO) 73.5 % (43.0-81.0); PLATELET COUNT (AUTO) 275 K/uL (150-450); RED BLOOD CELL COUNT(AUTO) 2.51 MIL/uL (4.0-5.2); WHITE BLOOD COUNT (AUTO) 7.2 K/uL (4.3-11.0)
[2021-09-24 08:42] LABS: IRON, SERUM 43 ug/dl (50-175); TOTAL IRON BINDING CAPACITY 162 ug/dl (250-450)
[2021-09-24] MEDS: LamoTRIgine 100 MG TABLET PO SCH ×2 (08:58→16:15)
[2021-09-24] MEDS: HEPARIN SODIUM, PORCINE 5000 UNITS/1 ML VIAL SQ SCH ×2 (09:00→21:00)
[2021-09-24] MEDS: MAGNESIUM OXIDE 400 MG TABLET PO SCH ×2 (09:03→16:15)
[2021-09-24] MEDS: MULTIVITAMINS,THERAGRAN 1 UDTAB TABLET PO SCH (09:03)
[2021-09-24] MEDS: ASPIRIN 81 MG TAB.CHEW PO SCH (09:03)
[2021-09-24] MEDS: DEXAMETHASONE SOD PHOSPHATE 10 MG/ML VIAL IV SCH (09:03)
[2021-09-24] MEDS: DOXYCYCLINE HYCLATE (100 MG) 100 MG TABLET PO SCH ×2 (09:03→21:58)
[2021-09-24] MEDS: DOCUSATE SODIUM 100 MG CAPSULE PO SCH ×2 (09:03→16:15)
[2021-09-24] MEDS: hydrALAZINE HCL 25 MG TABLET PO SCH ×3 (09:04→16:58)
[2021-09-24] MEDS: FERROUS SULFATE (325 MG) 325 MG/TAB TABLET PO SCH ×2 (09:04→16:15)
--- NOTE | 2021-09-24 09:05 | NUR ---
RN NOTES HELD HEPARIN, PT HGB 7.2
[2021-09-24] MEDS: MUPIROCIN OINT 2% 22 GM TUBE NS SCH ×2 (09:06→21:59)
[2021-09-24] MEDS: EZETIMIBE 10 MG TABLET PO SCH (09:08)
[2021-09-24 09:20] LABS: ALBUMIN 2.4 g/dL (3.4-5.0); BILIRUBIN,DIRECT 0.1 mg/dL (0.0-0.2); BILIRUBIN,TOTAL 0.3 mg/dL (0.2-1.0); PHOSPHORUS 2.5 mg/dL (2.5-4.9); TOTAL PROTEIN, SERUM 6.5 g/dL (6.4-8.2)
[2021-09-24] MEDS: ACETAMINOPHEN 325 MG TABLET PO PRN (12:34)
[2021-09-24 13:00] VITALS: BP 162/48
--- NOTE | 2021-09-24 15:09 | NUR ---
RN NOTE- RECEIVED REPORT FROM OTHER RN ON DAY SHIFT. CARE INITIATED AT THIS TIME BY THIS RN. PT IVF NS AT 50/HR INFUSING CLAUS MIDLINE. VS STABLE. PT ALERT ORIENTED PERSON PLACE. . MONITOR/ ASSIST
[2021-09-24] MEDS: REMDESIVIR (CHARGED) 100 MG in IV NS 0.9% 100 ML IV SCH (17:35)
--- NOTE | 2021-09-24 18:36 | NUR ---
RN CLOSING NOTE- PATIENT ON 3L SIMPLE MASK WITH NO SIGNS OF DISTRESS OR LABORED BREATHING, SATS AT 95%, BED IS LOCKED IN THE LOWEST POSITION, SIDE RAILS UP CALL LIGHT WITHIN REACH, ALL SAFETY PRECAUTIONS IN PLACED, ISOLATION PRECAUTIONS IN PLACE, ON BILATERAL RESTRAINTS FOR SAFETY , MONITOR/ ASSIST
[2021-09-24 20:00] VITALS: BP 141/50
[2021-09-24] MEDS: CEFTRIAXONE 1 G in IV D5W 50 ML IV SCH (22:30)
[2021-09-25 04:00] VITALS: BP 156/66
[2021-09-25 06:30] LABS: BASOPHILS % (AUTO) 0.4 % (0.0-2.0); HEMATOCRIT 24 % (33-45); HEMOGLOBIN 7.8 g/dL (11.5-14.8); LYMPHOCYTES # (AUTO) 1.3 K/uL (0.8-4.8); LYMPHOCYTES % (AUTO) 13.2 % (20.0-44.0); MEAN CORPUSCULAR HGB CONC 32 g/dl (31.0-36.0); MEAN CORPUSCULAR VOLUME 93 fL (82-100); MONOCYTES # (AUTO) 0.9 K/uL (0.1-1.30); MONOCYTES % (AUTO) 9.3 % (2.0-12.0); NEUTROPHILS # (AUTO) 7.3 K/uL (1.8-8.9); NEUTROPHILS % (AUTO) 76.1 % (43.0-81.0); PLATELET COUNT (AUTO) 344 K/uL (150-450); RED BLOOD CELL COUNT(AUTO) 2.59 MIL/uL (4.0-5.2); WHITE BLOOD COUNT (AUTO) 9.6 K/uL (4.3-11.0)
[2021-09-25 07:07] LABS: ALBUMIN 2.5 g/dL (3.4-5.0); BILIRUBIN,DIRECT 0.2 mg/dL (0.0-0.2); BILIRUBIN,TOTAL 0.4 mg/dL (0.2-1.0); CALCIUM, SERUM 9.1 mg/dL (8.5-10.1); CREATININE 1.2 mg/dL (0.6-1.3); MAGNESIUM 2.2 mg/dL (1.8-2.4); TOTAL PROTEIN, SERUM 6.6 g/dL (6.4-8.2)
--- NOTE | 2021-09-25 07:10 | NUR ---
RN NOTES, PATIENT ON 3L NC, WITH NO SIGNS OF DISTRESS OR LABORED BREATHING, NO SIGNIFICANT CHANGE IN CONDITION DURING THE NIGHT, ON BILATERAL RESTRAINS, NO ABNORMALITY NOTED, NO CIRCULATION COMPROMISED, WILL ENDORSE TO ONCOMING NURSE FOR CONTINUATION OF CARE
[2021-09-25] MEDS: MUPIROCIN OINT 2% 22 GM TUBE NS SCH ×2 (08:39→21:26)
[2021-09-25] MEDS: LamoTRIgine 100 MG TABLET PO SCH ×2 (08:40→16:45)
[2021-09-25] MEDS: DOCUSATE SODIUM 100 MG CAPSULE PO SCH ×2 (08:40→16:45)
[2021-09-25] MEDS: DEXAMETHASONE SOD PHOSPHATE 10 MG/ML VIAL IV SCH (08:40)
[2021-09-25] MEDS: MAGNESIUM OXIDE 400 MG TABLET PO SCH ×2 (08:40→16:45)
[2021-09-25] MEDS: PANTOPRAZOLE 40 MG TABLET.DR PO SCH (08:40)
[2021-09-25] MEDS: LEVOTHYROXINE SODIUM 25 MCG TABLET PO SCH (08:41)
[2021-09-25] MEDS: ASPIRIN 81 MG TAB.CHEW PO SCH (08:41)
[2021-09-25] MEDS: EZETIMIBE 10 MG TABLET PO SCH (08:41)
[2021-09-25] MEDS: FERROUS SULFATE (325 MG) 325 MG/TAB TABLET PO SCH ×2 (08:41→16:45)
[2021-09-25] MEDS: DOXYCYCLINE HYCLATE (100 MG) 100 MG TABLET PO SCH (08:42)
[2021-09-25] MEDS: MULTIVITAMINS,THERAGRAN 1 UDTAB TABLET PO SCH (08:42)
[2021-09-25] MEDS: hydrALAZINE HCL 25 MG TABLET PO SCH ×3 (10:33→17:00)
--- NOTE | 2021-09-25 10:45 | NUR ---
rn note pt just assigned to from charge nurse will continue of care
[2021-09-25] MEDS ORDERED: DOXY100T2 PO (10:53)
[2021-09-25] MEDS ORDERED: AMOX-430 PO (10:53)
[2021-09-25] MEDS ORDERED: FURO-145 PO (10:53)
[2021-09-25] MEDS ORDERED: DEXA4TAB PO (10:53)
[2021-09-25] MEDS ORDERED: K PHOS NEUTRAL 250 MG TABLET PO ONE (12:30)
[2021-09-25 13:00] VITALS: BP 121/49
--- NOTE | 2021-09-25 15:02 | NUR ---
PER EQUIP TECH STILL PENDING PLACEMENT.
--- NOTE | 2021-09-25 15:21 | NUR ---
RN NOTE PER LABORATORY MRSA IS COLONIZED
--- NOTE | 2021-09-25 18:15 | NUR ---
RN CLOSING NOTE- PATIENT IS IN BED ALERT AND ORIENTED X3 ON 4L NASAL CANULA WITH NO SIGNS OF DISTRESS OR LABORED BREATHING, SATS AT 96%, IV CLAUS MID LINE PATENT AND FLUSHING WELL ALL NEEDS MET DURING SHIFT, PT IS SCHEDULE FOR DISCHARGE TOMORROW AT 10:00 AM PER CASE MANAGE, SAFETY MEASURES IN PLACE BED IS LOCKED AND IN LOWEST POSITION, SIDE RAILS UP, CALL LIGHT WITHIN REACH, ISOLATION PRECAUTIONS IN PLACE, ON BILATERAL RESTRAINTS FOR SAFETY , WILL ENDORSE TO VAPOR COATERDOCTOR OF NATUROPATHIC MEDICINE
--- NOTE | 2021-09-25 19:10 | NUR ---
RN OPENING NOTES RECEIVED PATIENT IN BED, AWAKE, ALERT AND VERBALLY RESPONSIVE, NO SOB NOTED NOT IN DISTRESS, A/O X 3, PT ON OXYGEN NASAL CANULA @ 4LPM, . PATIENT NOTED WITH CLAUS MIDLINE, PATENT INTACT AND FLUSHED WITH NORMAL SALINE. ALL SAFETY PRECAUTION IMPLEMENTED. BED IS AT LOWEST POSITION AND LOCKED. BED ALARM ARMED. CALL LIGHT IS WITHIN REACH. WILL CONTINUE TO MONITOR
[2021-09-25 20:22] LABS: BAND % (MANUAL) 8 % (0.0-5.0); LYMPHOCYTES % (MANUAL) 17 % (16-48); MONOCYTES % (MANUAL) 3 % (0-11.0); NEUTROPHILS % (MANUAL) 72 (42-76)
[2021-09-25 21:00] VITALS: BP 135/55
[2021-09-26] VITALS (9 sets, daily range): BP systolic 130–147; BP diastolic 48–60
[2021-09-26 06:50] LABS: BASOPHILS % (AUTO) 0.4 % (0.0-2.0); EOSINOPHILS % (AUTO) 1.6 % (0.0-6.0); HEMATOCRIT 22 % (33-45); HEMOGLOBIN 7.2 g/dL (11.5-14.8); LYMPHOCYTES # (AUTO) 1.5 K/uL (0.8-4.8); MEAN CORPUSCULAR HGB CONC 33 g/dl (31.0-36.0); MEAN CORPUSCULAR VOLUME 93 fL (82-100); MONOCYTES % (AUTO) 10.5 % (2.0-12.0); NEUTROPHILS # (AUTO) 6.7 K/uL (1.8-8.9); NEUTROPHILS % (AUTO) 71.5 % (43.0-81.0); PLATELET COUNT (AUTO) 298 K/uL (150-450); RED BLOOD CELL COUNT(AUTO) 2.38 MIL/uL (4.0-5.2); WHITE BLOOD COUNT (AUTO) 9.4 K/uL (4.3-11.0)
--- NOTE | 2021-09-26 06:50 | NUR ---
RN CLOSING NOTES NO SIGNIFICANT CHANGES THROUGH OUT THE SHIFT. NO SOB NOTED NOT IN DISTRESS, A/O X 3, PT ON OXYGEN NASAL CANULA @ 4LPM, . PATIENT NOTED WITH CLAUS MIDLINE, PATENT INTACT AND FLUSHED WITH NORMAL SALINE. ALL DUE MEDS GIVEN PER MD'S ORDERED. ALL SAFETY PRECAUTION IMPLEMENTED. BED IS AT LOWEST POSITION AND LOCKED. BED ALARM ARMED. CALL LIGHT IS WITHIN REACH. WILL CONTINUE TO MONITOR
[2021-09-26 07:00] LABS: ALBUMIN 2.4 g/dL (3.4-5.0); BILIRUBIN,DIRECT 0.2 mg/dL (0.0-0.2); BILIRUBIN,TOTAL 0.4 mg/dL (0.2-1.0); CALCIUM, SERUM 9.2 mg/dL (8.5-10.1); CREATININE 1.2 mg/dL (0.6-1.3); PHOSPHORUS 2.6 mg/dL (2.5-4.9); POTASSIUM 3.9 mmol/L (3.5-5.1); TOTAL PROTEIN, SERUM 6.1 g/dL (6.4-8.2)
--- NOTE | 2021-09-26 07:35 | NUR ---
RN OPEN NOTES PT RECEIVED AWAKE, ALERT AND ORIENTED X2-3 NO SOB OR DISTRESS NOTE, PT IS ON OXYGEN VIA NASAL CANULA 4LPM, PATIENT NOTED WITH CLAUS MIDLINE, PATENT INTACT AND FLUSHED WITH NORMAL SALINE. ALL SAFETY PRECAUTION IMPLEMENTED. BED IS AT LOWEST POSITION AND LOCKED. BED ALARM ON. CALL LIGHT IS WITHIN REACH. WILL CONTINUE TO MONITOR
[2021-09-26 09:13] LABS: LYMPHOCYTES % (MANUAL) 21 % (16-48); MONOCYTES % (MANUAL) 5 % (0-11.0); NEUTROPHILS % (MANUAL) 74 (42-76)
[2021-09-26] MEDS: PANTOPRAZOLE 40 MG TABLET.DR PO SCH (09:28)
[2021-09-26] MEDS: LamoTRIgine 100 MG TABLET PO SCH ×2 (09:28→17:13)
[2021-09-26] MEDS: DOCUSATE SODIUM 100 MG CAPSULE PO SCH ×2 (09:28→17:13)
[2021-09-26] MEDS: LEVOTHYROXINE SODIUM 25 MCG TABLET PO SCH (09:28)
[2021-09-26] MEDS: FERROUS SULFATE (325 MG) 325 MG/TAB TABLET PO SCH ×2 (09:28→17:13)
[2021-09-26] MEDS: DEXAMETHASONE SOD PHOSPHATE 10 MG/ML VIAL IV SCH (09:28)
[2021-09-26] MEDS: hydrALAZINE HCL 25 MG TABLET PO SCH ×3 (09:29→17:13)
[2021-09-26] MEDS: EZETIMIBE 10 MG TABLET PO SCH (09:29)
[2021-09-26] MEDS: MAGNESIUM OXIDE 400 MG TABLET PO SCH ×2 (09:29→17:13)
[2021-09-26] MEDS: ASPIRIN 81 MG TAB.CHEW PO SCH (09:29)
[2021-09-26] MEDS: MUPIROCIN OINT 2% 22 GM TUBE NS SCH ×2 (09:30→21:15)
[2021-09-26] MEDS: MULTIVITAMINS,THERAGRAN 1 UDTAB TABLET PO SCH (09:39)
--- NOTE | 2021-09-26 14:42 | NUR ---
rn note pt s tolerating PRBC well will continue to monitor
--- NOTE | 2021-09-26 16:20 | NUR ---
rn note pt tolerated prbc well
[2021-09-26 17:28] LABS: HEMOGLOBIN 8.6 g/dL (11.5-14.8)
--- NOTE | 2021-09-26 18:31 | NUR ---
RN CLOSING NOTES PT REMAINS IN BED AWAKE, ALERT AND ORIENTED X2-3 NO SOB OR DISTRESS NOTE, PT IS ON OXYGEN VIA NASAL CANULA 4LPM, PATIENT NOTED WITH CLAUS MIDLINE, PATENT INTACT AND FLUSHED WITH NORMAL SALINE. ONE UNIT OF RBC TRANSFUSED AND TOLERATED WELL HEMOGLOBIN 8.6 NOW. POSSIBLE DISCHARGE TOMORROW, ALL SAFETY PRECAUTION IMPLEMENTED. BED IS AT LOWEST POSITION AND LOCKED. BED ALARM ON. CALL LIGHT IS WITHIN REACH. WILL ENDORSE TO RECLAMATION WORKERBITUMEN PLANT OPERATOR
--- NOTE | 2021-09-26 19:00 | NUR ---
RN NOTES RECEIVED REPORT FROM MORNING NURSE. PATIENT IN BED A/O X2 WITH PERIODS OF CONFUSION. NO SIGN OF DISTRESS OR DISCOMFORT. WITH OXYGEN INHALATION AT 4LPM VIA NC TOLERATING WELL SATING 96%. VITAL SIGNS TAKEN AND RECORDED AFEBRILE. FOR POSSIBLE D/C TONIGHT. WITH CLAUS MIDLINE FLUSHES WELL. WITH FERNANDEZ CATHETER CONNECTED TO URINE BAG DRAINING WELL. WILL CONTINUE TO MONITOR.
--- NOTE | 2021-09-26 20:30 | NUR ---
RN NOTES CALLED DANE BANDA SPOKE TO JOSETTE AND ASKING ME ABOUT THE MRSA COLONIZED REPORT, INFORMED CN AND DIRECTOR OF TECHNOLOGY HELD DISCHARGE FOR NOW AND WILL D/C TOMORROW INSTEAD.
[2021-09-26] MEDS: IPRATROPIUM BROMIDE 14 GM INHALER (or 12.9 GM) NEB SCH (20:57)
[2021-09-27 05:00] VITALS: BP 119/56
--- NOTE | 2021-09-27 06:40 | NUR ---
RN NOTES PATIENT REMAINS STABLE NO SIGNIFICANT CHANGES IN HEALTH CONDITION. ALL DUE MEDS GIVEN ORDERED. KEPT CLEAN AND DRY AT ALL TIMES. HOB ELEVATED, CALL LIGHT WITHIN REACH. BED ON LOWEST POSITION AND LOCKED. FOR POSSIBLE D/C TODAY. ENDORSED
[2021-09-27 07:25] LABS: BASOPHILS # (AUTO) 0.1 K/uL (0.0-0.2); BASOPHILS % (AUTO) 0.5 % (0.0-2.0); EOSINOPHILS % (AUTO) 1.1 % (0.0-6.0); HEMATOCRIT 27 % (33-45); HEMOGLOBIN 8.4 g/dL (11.5-14.8); LYMPHOCYTES # (AUTO) 1.9 K/uL (0.8-4.8); LYMPHOCYTES % (AUTO) 11.6 % (20.0-44.0); MEAN CORPUSCULAR HGB CONC 32 g/dl (31.0-36.0); MEAN CORPUSCULAR VOLUME 94 fL (82-100); MONOCYTES # (AUTO) 1.5 K/uL (0.1-1.30); MONOCYTES % (AUTO) 9.1 % (2.0-12.0); NEUTROPHILS # (AUTO) 12.6 K/uL (1.8-8.9); NEUTROPHILS % (AUTO) 77.7 % (43.0-81.0); PLATELET COUNT (AUTO) 418 K/uL (150-450); RED BLOOD CELL COUNT(AUTO) 2.84 MIL/uL (4.0-5.2); WHITE BLOOD COUNT (AUTO) 16.2 K/uL (4.3-11.0)
[2021-09-27] MEDS: IPRATROPIUM BROMIDE 14 GM INHALER (or 12.9 GM) NEB SCH ×3 (07:35→21:37)
[2021-09-27] MEDS: DOCUSATE SODIUM 100 MG CAPSULE PO SCH ×2 (08:16→16:57)
[2021-09-27] MEDS: MAGNESIUM OXIDE 400 MG TABLET PO SCH ×2 (08:16→16:57)
[2021-09-27] MEDS: LEVOTHYROXINE SODIUM 25 MCG TABLET PO SCH (08:16)
[2021-09-27] MEDS: MULTIVITAMINS,THERAGRAN 1 UDTAB TABLET PO SCH (08:16)
[2021-09-27] MEDS: EZETIMIBE 10 MG TABLET PO SCH (08:16)
[2021-09-27] MEDS: PANTOPRAZOLE 40 MG TABLET.DR PO SCH (08:16)
[2021-09-27] MEDS: FERROUS SULFATE (325 MG) 325 MG/TAB TABLET PO SCH ×2 (08:16→16:57)
[2021-09-27] MEDS: ASPIRIN 81 MG TAB.CHEW PO SCH (08:16)
[2021-09-27] MEDS: DEXAMETHASONE SOD PHOSPHATE 10 MG/ML VIAL IV SCH (08:17)
[2021-09-27] MEDS: MUPIROCIN OINT 2% 22 GM TUBE NS SCH ×2 (08:17→21:33)
[2021-09-27] MEDS: LamoTRIgine 100 MG TABLET PO SCH ×2 (08:17→16:57)
[2021-09-27] MEDS: hydrALAZINE HCL 25 MG TABLET PO SCH ×3 (08:25→16:55)
[2021-09-27 08:39] LABS: ALBUMIN 2.7 g/dL (3.4-5.0); BILIRUBIN,DIRECT 0.2 mg/dL (0.0-0.2); BILIRUBIN,TOTAL 0.5 mg/dL (0.2-1.0); CALCIUM, SERUM 9.2 mg/dL (8.5-10.1); CREATININE 1.3 mg/dL (0.6-1.3); POTASSIUM 4.3 mmol/L (3.5-5.1); TOTAL PROTEIN, SERUM 6.6 g/dL (6.4-8.2)
[2021-09-27] MEDS: FUROSEMIDE 20 MG/2 ML VIAL IV SCH ×2 (09:19→16:55)
[2021-09-27] MEDS ORDERED: CEFEPIME 1 GM VIAL IM SCH (11:00)
--- NOTE | 2021-09-27 11:12 | NUR ---
RN NOTE CM TALKED TO DR. AGOSTO. DECIDED TO KEEP PATIENT AND CANCEL DISCHARGED FOR NOW. WILL CONTINUE TO MONITOR.
[2021-09-27] MEDS ORDERED: CEFEPIME 2 GM in IV D5W 100 ML IV SCH (12:00)
[2021-09-27] MEDS: VANCOMYCIN HCL 1.25 GM in IV D5W 260 ML IV SCH (12:30)
[2021-09-27] MEDS: MEROPENEM 1 G in IV NS 0.9% 100 ML IV SCH (12:35)
[2021-09-27 13:00] VITALS: BP 138/67
[2021-09-27] MEDS ORDERED: MEROPENEM 500 MG in IV NS 0.9% 50 ML IV SCH (13:00)
--- NOTE | 2021-09-27 18:54 | NUR ---
RN NOTE PATIENT REMAINS IN BED. PATIENT ON 4L O2 NC WITH NO SIGNS OF LABORED BREATHING AT THIS TIME. FERNANDEZ CATH IN PLACE, PATENT. NO SIGNS OF DISTRESS NOTED. ALL NEEDS ATTENDED. BED LOCKED AND IN LOWEST POSITION, CALL LIGHT WITHIN REACH, 3 SIDE RAILS UP. WILL ENDORSE TO ACCOUNTING MANAGER ASSISTANT CONTROLLER NURSE.
--- NOTE | 2021-09-27 19:20 | NUR ---
MS/RN OPENING NOTE RECEIVED PATIENT SLEEPING IN BED. ALERT AND ORIENTED X 2. ABLE TO MAKE NEEDS KNOWN. DENIES PAIN AT THIS TIME. CONTINUES ON O2 @ 4L VIA NC WITH NO S/SX OF RESPIRATORY DISTRESS NOTED. IV ACCESS TO LEFT UPPER ARM MIDLINE INTACT, PATENT AND SALINE LOCKED. PATIENT WITH ORDER FOR BILATERAL SOFT WRIST RESTRAINTS - CURRENTLY OFF WITH PATIENT RESTING QUIETLY IN BED. FERNANDEZ CATHETER IN PLACE DRAINING CLEAR, YELLOW URINE TO GRAVITY. CALL LIGHT WITHIN REACH. ASPIRATION, FALL AND SAFETY PRECAUTIONS MAINTAINED. WILL CONTINUE TO MONITOR.
[2021-09-27 21:00] VITALS: BP 121/47
[2021-09-27 22:23] LABS: BAND % (MANUAL) 2 % (0.0-5.0); EOSINOPHILS % (MANUAL) 2 % (0-4); LYMPHOCYTES % (MANUAL) 13 % (16-48); MONOCYTES % (MANUAL) 9 % (0-11.0); MYELOCYTES % 1 % (0-0); NEUTROPHILS % (MANUAL) 73 (42-76)
[2021-09-28] MEDS: MEROPENEM 1 G in IV NS 0.9% 100 ML IV SCH ×2 (02:03→14:36)
[2021-09-28] MEDS: IPRATROPIUM BROMIDE 14 GM INHALER (or 12.9 GM) NEB SCH ×4 (02:04→20:23)
[2021-09-28 05:00] VITALS: BP 139/43
--- NOTE | 2021-09-28 06:20 | NUR ---
MS/RN CLOSING NOTE PATIENT CURRENTLY SLEEPING IN BED. ALERT AND ORIENTED X 2. ABLE TO MAKE NEEDS KNOWN. DENIES PAIN AT THIS TIME. CONTINUES ON O2 @ 4L VIA NC WITH NO S/SX OF RESPIRATORY DISTRESS NOTED. IV ACCESS TO LEFT UPPER ARM MIDLINE INTACT, PATENT AND SALINE LOCKED. RENEWED BILATERAL SOFT WRIST RESTRAINTS WITH POSITIVE CIRCULATION AND NO SKIN ISSUES NOTED. PATIENT WAS ATTEMPTING TO PULL OFF O2 AND IV LINE. FERNANDEZ CATHETER IN PLACE DRAINING CLEAR, YELLOW URINE TO GRAVITY. CALL LIGHT WITHIN REACH. ASPIRATION, FALL AND SAFETY PRECAUTIONS MAINTAINED. WILL ENDORSE PLAN OF CARE TO ONCOMING SHIFT.
[2021-09-28 07:08] LABS: BASOPHILS % (AUTO) 0.3 % (0.0-2.0); EOSINOPHILS % (AUTO) 0.9 % (0.0-6.0); HEMATOCRIT 24 % (33-45); HEMOGLOBIN 7.6 g/dL (11.5-14.8); LYMPHOCYTES # (AUTO) 1.9 K/uL (0.8-4.8); LYMPHOCYTES % (AUTO) 12.5 % (20.0-44.0); MEAN CORPUSCULAR HGB CONC 32 g/dl (31.0-36.0); MEAN CORPUSCULAR VOLUME 93 fL (82-100); MONOCYTES # (AUTO) 1.3 K/uL (0.1-1.30); MONOCYTES % (AUTO) 8.6 % (2.0-12.0); NEUTROPHILS # (AUTO) 11.5 K/uL (1.8-8.9); NEUTROPHILS % (AUTO) 77.7 % (43.0-81.0); PLATELET COUNT (AUTO) 355 K/uL (150-450); WHITE BLOOD COUNT (AUTO) 14.8 K/uL (4.3-11.0)
[2021-09-28 07:34] LABS: ALBUMIN 2.4 g/dL (3.4-5.0); BILIRUBIN,DIRECT 0.2 mg/dL (0.0-0.2); BILIRUBIN,TOTAL 0.5 mg/dL (0.2-1.0); CALCIUM, SERUM 9.1 mg/dL (8.5-10.1); CREATININE 1.3 mg/dL (0.6-1.3); POTASSIUM 4.2 mmol/L (3.5-5.1)
--- NOTE | 2021-09-28 07:38 | NUR ---
MS RN OPENING NOTE Patient in bed, asleep. A/O x 2. On O2 at 4 LPM via NC. No SOB or s/s of distress noted. IV access on CLAUS midline #18G,SL intact and patent. Scott catheter in place. Safety precautions in place: bed inlow, locked position; siderails up x 2; call light within reach. Will continue to monitor.
[2021-09-28] MEDS: DOCUSATE SODIUM 100 MG CAPSULE PO SCH ×2 (09:42→16:40)
[2021-09-28] MEDS: MAGNESIUM OXIDE 400 MG TABLET PO SCH ×2 (09:42→16:41)
[2021-09-28] MEDS: FERROUS SULFATE (325 MG) 325 MG/TAB TABLET PO SCH ×2 (09:42→16:41)
[2021-09-28] MEDS: LEVOTHYROXINE SODIUM 25 MCG TABLET PO SCH (09:42)
[2021-09-28] MEDS: MULTIVITAMINS,THERAGRAN 1 UDTAB TABLET PO SCH (09:42)
[2021-09-28] MEDS: PANTOPRAZOLE 40 MG TABLET.DR PO SCH (09:42)
[2021-09-28] MEDS: EZETIMIBE 10 MG TABLET PO SCH (09:42)
[2021-09-28] MEDS: LamoTRIgine 100 MG TABLET PO SCH ×2 (09:42→16:41)
[2021-09-28] MEDS: ASPIRIN 81 MG TAB.CHEW PO SCH (09:42)
[2021-09-28] MEDS: hydrALAZINE HCL 25 MG TABLET PO SCH ×3 (09:43→16:40)
[2021-09-28] MEDS: FUROSEMIDE 20 MG/2 ML VIAL IV SCH ×2 (09:44→16:39)
[2021-09-28] MEDS: DEXAMETHASONE SOD PHOSPHATE 10 MG/ML VIAL IV SCH (09:44)
[2021-09-28] MEDS: MUPIROCIN OINT 2% 22 GM TUBE NS SCH ×2 (09:50→21:53)
[2021-09-28] MEDS: VANCOMYCIN HCL 1.25 GM in IV D5W 260 ML IV SCH (12:17)
[2021-09-28 12:46] LABS: BILIRUBIN,URINE NEGATIVE (NEGATIVE); COLOR,URINE YELLOW (YELLOW); LEUKOCYTE ESTERASE ,URINE LARGE (NEGATIVE); NITRITE, URINE NEGATIVE (NEGATIVE); PROTEIN,URINE 100 mg/dl (NEGATIVE); UGLUCOSE NEGATIVE (NEGATIVE); UROBILINOGEN,URINE 0.2 EU/dL (0.2)
[2021-09-28 12:49] LABS: BACTERIA,URINE 2+ /HPF (None Seen); RBC,URINE 21-50 /HPF (0-2); SQUAMOUS EPITHELIAL CELL,UR Few /HPF (None Seen)
[2021-09-28 13:00] VITALS: BP 119/55
--- NOTE | 2021-09-28 18:50 | NUR ---
MS RN CLOSING NOTE Patient in bed, resting. A/O x 2, able to answer simple questions On O2 at 4 LPM via NC. No SOB or s/s of distress noted. IV access on CLAUS midline #18G,SL intact and patent. Scott catheter in place draining to an ross colored urine with an output of 800 cc. All needs attended to. due meds given. Safety precautions maintained: bed in low, locked position; siderails up x 2; call light within reach. Will endorse to drop wirer nurse for MERY.
--- NOTE | 2021-09-28 19:30 | NUR ---
MS RN OPENING NOTE PATIENT AWAKE IN ROOM. NO S/S OF DISTRESS, BREATHING SYMMETRICAL. CLAUS MIDLINE #18 SL PATENT. NC 4L PRN. SAFETY MEASURES IN PLACE: BED AT LOWEST POSITION, RAILS UP X2, CALL FOX WITHIN REACH. WILL CONTINUE TO MONITOR PATIENT.
[2021-09-28 20:00] VITALS: BP 156/59
[2021-09-29] MEDS: MEROPENEM 1 G in IV NS 0.9% 100 ML IV SCH ×2 (01:07→13:53)
[2021-09-29] MEDS: IPRATROPIUM BROMIDE 14 GM INHALER (or 12.9 GM) NEB SCH (01:41)
--- NOTE | 2021-09-29 06:13 | NUR ---
MS RN CLOSING NOTE PATIENT AWAKE IN BED. A/OX2. NO S/S OF DISTRESS, BREATHING SYMMETRCIAL; NC 4L. CLAUS MIDLINE #18 SL PATENT. PATIENT REMAINS ON BILAT SOFT WRIST RESTRAINTS AND HAS BEEN CHECKED PER PROTOCOL WITHOUT ANY ADVENTITIOUS FINDINGS TO REPORT. SAFETY MEASURES IN PLACE: BED AT LOWEST POSITION, RAILS UP X2, CALL FOX WITHIN REACH. WILL ENDORSE TO NEXT SHIFT FOR MERY.
[2021-09-29 06:34] LABS: BASOPHILS # (AUTO) 0.1 K/uL (0.0-0.2); BASOPHILS % (AUTO) 0.9 % (0.0-2.0); EOSINOPHILS % (AUTO) 1.2 % (0.0-6.0); HEMATOCRIT 25 % (33-45); LYMPHOCYTES # (AUTO) 1.7 K/uL (0.8-4.8); LYMPHOCYTES % (AUTO) 13.4 % (20.0-44.0); MEAN CORPUSCULAR HGB CONC 32 g/dl (31.0-36.0); MEAN CORPUSCULAR VOLUME 93 fL (82-100); MONOCYTES # (AUTO) 1.3 K/uL (0.1-1.30); MONOCYTES % (AUTO) 9.8 % (2.0-12.0); NEUTROPHILS # (AUTO) 9.7 K/uL (1.8-8.9); NEUTROPHILS % (AUTO) 74.7 % (43.0-81.0); PLATELET COUNT (AUTO) 385 K/uL (150-450); RED BLOOD CELL COUNT(AUTO) 2.71 MIL/uL (4.0-5.2); WHITE BLOOD COUNT (AUTO) 12.9 K/uL (4.3-11.0)
--- NOTE | 2021-09-29 07:25 | NUR ---
RN OPENING NOTE RECEIVED PATIENT AWAKE IN ROOM. ON O2 4L VIA NC, TOLERATING WELL. BREATHING EVEN AND UNLABORED. NO SOB OR ANY ACUTE DISTRESS NOTED. IV ACCESS ON CLAUS MIDLINE #18 SL INTACT, PATENT AND FLUSHED. FERNANDEZ CATH PATENT AND INTACT, DRAINING WELL. ALL APPPLICABLE ISOLATION PRECAUTIONS IN PLACE. ALL SAFETY MEASURES IN PLACE: HOB ELEVATED, BED LOCKED AND AT LOWEST POSITION, RAILS UP X2, CALL FOX WITHIN REACH. WILL CONTINUE TO MONITOR PATIENT ACCORDINGLY.
[2021-09-29 07:26] LABS: CALCIUM, SERUM 10.1 mg/dL (8.5-10.1); CARBON DIOXIDE 29 mmol/L (21-32); CHLORIDE 102 mmol/L (98-107); CREATININE 1.4 mg/dL (0.6-1.3); GLUCOSE 82 mg/dL (74-106); MAGNESIUM 2.2 mg/dL (1.8-2.4); PHOSPHORUS 3.4 mg/dL (2.5-4.9); POTASSIUM 4.1 mmol/L (3.5-5.1); SODIUM SERUM 140 mmol/L (136-145); UREA NITROGEN, BLOOD 20 mg/dL (7-18)
[2021-09-29] MEDS: PANTOPRAZOLE 40 MG TABLET.DR PO SCH (08:49)
[2021-09-29] MEDS: LEVOTHYROXINE SODIUM 25 MCG TABLET PO SCH (08:49)
[2021-09-29] MEDS: ASPIRIN 81 MG TAB.CHEW PO SCH (08:50)
[2021-09-29] MEDS: DOCUSATE SODIUM 100 MG CAPSULE PO SCH ×2 (08:50→16:08)
[2021-09-29] MEDS: EZETIMIBE 10 MG TABLET PO SCH (08:50)
[2021-09-29] MEDS: LamoTRIgine 100 MG TABLET PO SCH ×2 (08:50→16:08)
[2021-09-29] MEDS: MULTIVITAMINS,THERAGRAN 1 UDTAB TABLET PO SCH (08:50)
[2021-09-29] MEDS: FERROUS SULFATE (325 MG) 325 MG/TAB TABLET PO SCH ×2 (08:50→16:08)
[2021-09-29] MEDS: hydrALAZINE HCL 25 MG TABLET PO SCH ×3 (08:51→16:08)
[2021-09-29] MEDS: FUROSEMIDE 20 MG/2 ML VIAL IV SCH ×2 (08:52→16:08)
[2021-09-29] MEDS: DEXAMETHASONE SOD PHOSPHATE 10 MG/ML VIAL IV SCH (08:52)
[2021-09-29] MEDS: MAGNESIUM OXIDE 400 MG TABLET PO SCH ×2 (09:13→16:08)
[2021-09-29] MEDS: MUPIROCIN OINT 2% 22 GM TUBE NS SCH ×2 (09:13→22:00)
[2021-09-29] MEDS: VANCOMYCIN HCL 1.25 GM in IV D5W 260 ML IV SCH (11:43)
--- NOTE | 2021-09-29 19:15 | NUR ---
RN OPENING NOTES RECEIVED PATIENT IN BED, AWAKE, ALERT AND VERBALLY RESPONSIVE, NO SOB NOTED NOT IN DISTRESS, A/O X 2 PT ON NASAL CANULA @ 4LPM . PATIENT NOTED WITH CLAUS MID LINE, PATENT INTACT AND FLUSHED WITH NORMAL SALINE. ALL SAFETY PRECAUTION IMPLEMENTED. BED IS AT LOWEST POSITION AND LOCKED. BED ALARM ARMED. CALL LIGHT IS WITHIN REACH. WILL CONTINUE TO MONITOR
--- NOTE | 2021-09-29 19:20 | NUR ---
RN CLOSING NOTES PATIENT REMAINS AT STABLE CONDITION THROUGHOUT SHIFT. ON O2 4LPM VIA NC, TOLERATING WELL. BREATHING EVEN AND UNLABORED. NO SOB OR ANY ACUTE DISTRESS NOTED. IV ACCESS ON CLAUS MIDLINE PATENT AND INTACT. ALL DUE MEDS GIVEN ORDERED. ALL NEEDS ATTENDED. KEPT PATIENT CLEAN, DRY AND COMFORTABLE. ALL APPLICABLE ISOLATION PRECAUTIONS MAINTAINED. ALL SAFETY MEASURES MAINTAINED. HOB ELEVATED BED LOCKED AND IN LOWEST POSITION WITH SIDERAILS UP CALL LIGHT WITHIN REACH. WILL ENDORSE TO ONCOMING NURSE FOR MERY.
[2021-09-30] MEDS: MEROPENEM 1 G in IV NS 0.9% 100 ML IV SCH ×2 (01:45→13:50)
--- NOTE | 2021-09-30 07:20 | NUR ---
RN OPENING NOTE RECEIVED PATIENT AWAKE, ALERT/ORIENTED X 2. ON O2 4L VIA NC, TOLERATING WELL. BREATHING EVEN AND UNLABORED. NO SOB OR ANY ACUTE DISTRESS NOTED. IV ACCESS ON CLAUS MIDLINE #18 SL INTACT, PATENT AND FLUSHED. FERNANDEZ CATH PATENT AND INTACT, DRAINING WELL. ALL APPPLICABLE ISOLATION PRECAUTIONS IN PLACE. ALL SAFETY MEASURES IN PLACE: HOB ELEVATED, BED LOCKED AND AT LOWEST POSITION, RAILS UP X2, CALL LIGHT WITHIN REACH OF PATIENT. WILL CONTINUE TO MONITOR PATIENT ACCORDINGLY.
--- NOTE | 2021-09-30 07:20 | NUR ---
RN CLOSING NOTES PATIENT REMAIN STABLE THROUGH OUT THE SHIFT, NO SOB NOTED NOT IN DISTRESS, A/O X 2 PT ON NASAL CANULA @ 4LPM . PATIENT NOTED WITH CLAUS MID LINE, PATENT INTACT AND FLUSHED WITH NORMAL SALINE. ALL DUE MEDS GIVEN ORDERED. ALL SAFETY PRECAUTION IMPLEMENTED. BED IS AT LOWEST POSITION AND LOCKED. BED ALARM ARMED. CALL LIGHT IS WITHIN REACH. WILL CONTINUE TO MONITOR
[2021-09-30] MEDS: MAGNESIUM OXIDE 400 MG TABLET PO SCH ×2 (08:38→18:08)
[2021-09-30] MEDS: MULTIVITAMINS,THERAGRAN 1 UDTAB TABLET PO SCH (08:38)
[2021-09-30] MEDS: LEVOTHYROXINE SODIUM 25 MCG TABLET PO SCH (08:38)
[2021-09-30] MEDS: PANTOPRAZOLE 40 MG TABLET.DR PO SCH (08:38)
[2021-09-30] MEDS: EZETIMIBE 10 MG TABLET PO SCH (08:39)
[2021-09-30] MEDS: ASPIRIN 81 MG TAB.CHEW PO SCH (08:39)
[2021-09-30] MEDS: FUROSEMIDE 20 MG/2 ML VIAL IV SCH ×2 (08:40→18:07)
[2021-09-30] MEDS: LamoTRIgine 100 MG TABLET PO SCH ×2 (08:40→18:06)
[2021-09-30] MEDS: DOCUSATE SODIUM 100 MG CAPSULE PO SCH ×2 (08:40→18:06)
[2021-09-30] MEDS: hydrALAZINE HCL 25 MG TABLET PO SCH ×3 (08:40→18:07)
[2021-09-30] MEDS: DEXAMETHASONE SOD PHOSPHATE 10 MG/ML VIAL IV SCH (08:40)
[2021-09-30] MEDS: FERROUS SULFATE (325 MG) 325 MG/TAB TABLET PO SCH ×2 (08:40→18:06)
[2021-09-30] MEDS: MUPIROCIN OINT 2% 22 GM TUBE NS SCH (09:27)
[2021-09-30] MEDS: VANCOMYCIN HCL 1.25 GM in IV D5W 260 ML IV SCH (11:24)
[2021-09-30 20:00] VITALS: BP 125/48
--- NOTE | 2021-09-30 20:00 | NUR ---
RN CLOSING NOTES PATIENT REMAINS AT STABLE CONDITION THROUGHOUT SHIFT. ON O2 4LPM VIA NC, TOLERATING WELL. BREATHING EVEN AND UNLABORED. NO SOB OR ANY ACUTE DISTRESS NOTED. IV ACCESS ON CLAUS MIDLINE PATENT AND INTACT. ALL DUE MEDS GIVEN ORDERED. ALL NEEDS ATTENDED. KEPT PATIENT CLEAN, DRY AND COMFORTABLE. ALL APPLICABLE ISOLATION PRECAUTIONS MAINTAINED. ALL SAFETY MEASURES MAINTAINED. HOB ELEVATED BED LOCKED AND IN LOWEST POSITION WITH SIDERAILS UP CALL LIGHT WITHIN REACH. ENDORSED TO ONCOMING NURSE FOR MERY.
[2021-10-01] MEDS: MEROPENEM 1 G in IV NS 0.9% 100 ML IV SCH ×2 (01:08→13:36)
[2021-10-01 04:00] VITALS: BP 122/58
--- NOTE | 2021-10-01 04:47 | NUR ---
RN NOTES URINE COLLECTED, NOTIFIED LABS, SPOKE TO LASHON.
--- NOTE | 2021-10-01 07:45 | NUR ---
RN CLOSING NOTES PATIENT RESTING ON BED, NO SOB NOTED NOT IN DISTRESS, A/O X 2 PT ON NASAL CANULA @ 4LPM . PATIENT NOTED WITH CLAUS MID LINE, PATENT INTACT AND FLUSHED WITH NORMAL SALINE. ALL DUE MEDS GIVEN ORDERED. ALL SAFETY PRECAUTION IMPLEMENTED. BED IS AT LOWEST POSITION AND LOCKED. BED ALARM ARMED. CALL LIGHT IS WITHIN REACH. WILL CONTINUE TO MONITOR
[2021-10-01] MEDS: PANTOPRAZOLE 40 MG TABLET.DR PO SCH (07:51)
[2021-10-01] MEDS: LEVOTHYROXINE SODIUM 25 MCG TABLET PO SCH (07:51)
[2021-10-01 08:00] VITALS: BP 131/67
[2021-10-01 08:22] LABS: BASOPHILS # (AUTO) 0.1 K/uL (0.0-0.2); BASOPHILS % (AUTO) 0.8 % (0.0-2.0); EOSINOPHILS % (AUTO) 1.8 % (0.0-6.0); HEMATOCRIT 27 % (33-45); HEMOGLOBIN 8.6 g/dL (11.5-14.8); LYMPHOCYTES # (AUTO) 1.8 K/uL (0.8-4.8); LYMPHOCYTES % (AUTO) 12.2 % (20.0-44.0); MEAN CORPUSCULAR HGB CONC 32 g/dl (31.0-36.0); MEAN CORPUSCULAR VOLUME 93 fL (82-100); MONOCYTES # (AUTO) 1.7 K/uL (0.1-1.30); MONOCYTES % (AUTO) 11.4 % (2.0-12.0); NEUTROPHILS % (AUTO) 73.8 % (43.0-81.0); PLATELET COUNT (AUTO) 511 K/uL (150-450); RED BLOOD CELL COUNT(AUTO) 2.94 MIL/uL (4.0-5.2); WHITE BLOOD COUNT (AUTO) 14.9 K/uL (4.3-11.0)
[2021-10-01 08:29] LABS: CALCIUM, SERUM 9.5 mg/dL (8.5-10.1); CARBON DIOXIDE 29 mmol/L (21-32); CHLORIDE 102 mmol/L (98-107); CREATININE 1.7 mg/dL (0.6-1.3); GLUCOSE 86 mg/dL (74-106); MAGNESIUM 2.7 mg/dL (1.8-2.4); PHOSPHORUS 3.7 mg/dL (2.5-4.9); POTASSIUM 4.6 mmol/L (3.5-5.1); SODIUM SERUM 139 mmol/L (136-145); UREA NITROGEN, BLOOD 29 mg/dL (7-18)
[2021-10-01] MEDS: DOCUSATE SODIUM 100 MG CAPSULE PO SCH ×2 (09:52→17:27)
[2021-10-01] MEDS: LamoTRIgine 100 MG TABLET PO SCH ×2 (09:52→17:28)
[2021-10-01] MEDS: FERROUS SULFATE (325 MG) 325 MG/TAB TABLET PO SCH ×2 (09:52→17:27)
[2021-10-01] MEDS: FUROSEMIDE 20 MG/2 ML VIAL IV SCH ×2 (09:52→17:28)
[2021-10-01] MEDS: ASPIRIN 81 MG TAB.CHEW PO SCH (09:52)
[2021-10-01] MEDS: MULTIVITAMINS,THERAGRAN 1 UDTAB TABLET PO SCH (09:52)
[2021-10-01] MEDS: MAGNESIUM OXIDE 400 MG TABLET PO SCH ×2 (09:52→17:27)
[2021-10-01] MEDS: hydrALAZINE HCL 25 MG TABLET PO SCH ×3 (09:53→17:28)
[2021-10-01] MEDS: EZETIMIBE 10 MG TABLET PO SCH (09:56)
[2021-10-01 12:00] VITALS: BP 136/67
[2021-10-01 12:07] LABS: BAND % (MANUAL) 5 % (0.0-5.0); EOSINOPHILS % (MANUAL) 3 % (0-4); LYMPHOCYTES % (MANUAL) 14 % (16-48); MONOCYTES % (MANUAL) 11 % (0-11.0); MYELOCYTES % 1 % (0-0); NEUTROPHILS % (MANUAL) 66 (42-76)
[2021-10-01 16:00] VITALS: BP 140/58
--- NOTE | 2021-10-01 19:30 | NUR ---
MS RN NOTE RECEIVED PATIENT IN BED, ISOLATION IN PLACE. A/OX2. NO S/S OF APPARENT DISTRESS ON 3LPM OF O2 VIA NC. PATIENT NOTED TO HAVE SOFT BILA. RESTRAINTS ON. NO IV FLUIDS RUNNING AT THIS TIME. FERNANDEZ CATHETER DRAINING CLEAR, YELLOW URINE. SAFETY IN PLACE. WILL CONTINUE WITH PLAN OF CARE FOR PATIENT.
[2021-10-01 20:00] VITALS: BP 117/49
[2021-10-01] MEDS: DOXYCYCLINE 100 MG in IV D5W 100 ML IV SCH (20:35)
[2021-10-02] MEDS: MEROPENEM 1 G in IV NS 0.9% 100 ML IV SCH ×2 (01:02→12:26)
[2021-10-02 04:00] VITALS: BP 115/43
--- NOTE | 2021-10-02 06:31 | NUR ---
MS RN CLOSING NOTE PATIENT IN BED WITH EYES CLOSED. A/OX2. NO S/S OF APPARENT DISTRESS ON 3LPM O2 VIA NC. HOB ELEVATED. DENIES PAIN. NEEDS ATTENDED. ALL SCHDULED MEDS ADMINISTERED. RESTRAINTS RENEWED. FERNANDEZ DRAINING CLEAR, GABRIELLE URINE WITH UO OF 450ML. NO FLUIDS RUNNING AT THIS TIME. SAFETY IN PLACE. ISOLATION PRECAUTION SAFELY FOLLOWED. WILL ENDORSE TO MORNING RN FOR CONTINUITY OF CARE.
--- NOTE | 2021-10-02 07:27 | NUR ---
RN OPEN NOTE PATIENT RECEIVED IN BED RESTING A/OX2. NO S/S OF APPARENT DISTRESS ON 3LPM O2 VIA NC. BREATHING EVEN AND UNLABORED HOB ELEVATED. NO COMPLAINS OF PAIN AT THIS TIME, BILATERAL SOFT RESTRAINTS NOTED. FERNANDEZ DRAINING CLEAR, GABRIELLE URINE BELOW THE PT, NO FLUIDS RUNNING AT THIS TIME. SAFETY MEASURES IN PLACE ALARM ON BED LOCKED AND IN LOWEST POSITION, ISOLATION PRECAUTION IMPLEMENTED WILL CONTINUE TO MONITOR
[2021-10-02 07:36] LABS: BASOPHILS # (AUTO) 0.1 K/uL (0.0-0.2); BASOPHILS % (AUTO) 0.9 % (0.0-2.0); EOSINOPHILS % (AUTO) 2.4 % (0.0-6.0); HEMATOCRIT 26 % (33-45); HEMOGLOBIN 8.3 g/dL (11.5-14.8); LYMPHOCYTES # (AUTO) 1.6 K/uL (0.8-4.8); LYMPHOCYTES % (AUTO) 13.7 % (20.0-44.0); MEAN CORPUSCULAR HGB CONC 33 g/dl (31.0-36.0); MEAN CORPUSCULAR VOLUME 92 fL (82-100); MONOCYTES # (AUTO) 1.2 K/uL (0.1-1.30); MONOCYTES % (AUTO) 10.9 % (2.0-12.0); NEUTROPHILS # (AUTO) 8.2 K/uL (1.8-8.9); NEUTROPHILS % (AUTO) 72.1 % (43.0-81.0); PLATELET COUNT (AUTO) 448 K/uL (150-450); RED BLOOD CELL COUNT(AUTO) 2.78 MIL/uL (4.0-5.2); WHITE BLOOD COUNT (AUTO) 11.4 K/uL (4.3-11.0)
[2021-10-02 08:10] LABS: CALCIUM, SERUM 9.2 mg/dL (8.5-10.1); CARBON DIOXIDE 30 mmol/L (21-32); CHLORIDE 102 mmol/L (98-107); CREATININE 1.7 mg/dL (0.6-1.3); GLUCOSE 100 mg/dL (74-106); MAGNESIUM 2.4 mg/dL (1.8-2.4); POTASSIUM 4.4 mmol/L (3.5-5.1); SODIUM SERUM 139 mmol/L (136-145); UREA NITROGEN, BLOOD 27 mg/dL (7-18)
[2021-10-02] MEDS: PANTOPRAZOLE 40 MG TABLET.DR PO SCH (08:19)
[2021-10-02] MEDS: LamoTRIgine 100 MG TABLET PO SCH ×2 (08:19→17:27)
[2021-10-02] MEDS: DOCUSATE SODIUM 100 MG CAPSULE PO SCH ×2 (08:19→17:27)
[2021-10-02] MEDS: MULTIVITAMINS,THERAGRAN 1 UDTAB TABLET PO SCH (08:19)
[2021-10-02] MEDS: FERROUS SULFATE (325 MG) 325 MG/TAB TABLET PO SCH ×2 (08:20→17:27)
[2021-10-02] MEDS: DOXYCYCLINE 100 MG in IV D5W 100 ML IV SCH (08:20)
[2021-10-02] MEDS: EZETIMIBE 10 MG TABLET PO SCH (08:20)
[2021-10-02] MEDS: LEVOTHYROXINE SODIUM 25 MCG TABLET PO SCH (08:20)
[2021-10-02] MEDS: ASPIRIN 81 MG TAB.CHEW PO SCH (08:20)
[2021-10-02] MEDS: MAGNESIUM OXIDE 400 MG TABLET PO SCH ×2 (08:20→17:27)
[2021-10-02] MEDS: FUROSEMIDE 20 MG/2 ML VIAL IV SCH ×2 (08:34→17:00)
[2021-10-02] MEDS: hydrALAZINE HCL 25 MG TABLET PO SCH ×3 (08:34→17:27)
[2021-10-02 12:00] VITALS: BP 109/40
[2021-10-02 17:27] VITALS: BP 122/40
--- NOTE | 2021-10-02 17:30 | NUR ---
rn note pt just pulled out iv line, waiting for ambulance to dc to snf, charge nurse notified
--- NOTE | 2021-10-02 18:18 | NUR ---
[facility]
== END 2021-10-02 18:55 | DRG 871 ==
LOC: ER 16:25 → TRANSITION 20:45 → TELE1 09-18 12:23 → MEDSG1 09-21 11:58
PROVIDERS: ADMIT Nurse Practitioner Acute Care; ATTEND Nurse Practitioner Family
PROC: 30233N1 Transfusion of Nonautologous Red Blood Cells into Peripheral Vein, Percutaneous Approach (ICD-10-PCS; 2021-09-17)
PROC: XW033E5 Introduction of Remdesivir Anti-infective into Peripheral Vein, Percutaneous Approach, New Technology Group 5 (ICD-10-PCS; principal; 2021-09-21)
PROC: 05HF33Z Insertion of Infusion Device into Left Cephalic Vein, Percutaneous Approach (ICD-10-PCS; 2021-09-23)
DX: A41.89 Other specified sepsis (principal); U07.1 COVID-19; J12.82 Pneumonia due to coronavirus disease 2019; N17.0 Acute kidney failure with tubular necrosis; I50.33 Acute on chronic diastolic (congestive) heart failure; J96.01 Acute respiratory failure with hypoxia; G92.8 Other toxic encephalopathy; J15.9 Unspecified bacterial pneumonia; N39.0 Urinary tract infection, site not specified; I13.0 Hypertensive heart and chronic kidney disease with heart failure and stage 1 through stage 4 chronic kidney disease, or unspecified chronic kidney disease; E44.0 Moderate protein-calorie malnutrition; D68.59 Other primary thrombophilia; Z68.42 Body mass index [BMI] 45.0-49.9, adult; N18.9 Chronic kidney disease, unspecified; E66.01 Morbid (severe) obesity due to excess calories; Z22.322 Carrier or suspected carrier of Methicillin resistant Staphylococcus aureus; E03.9 Hypothyroidism, unspecified; Z88.5 Allergy status to narcotic agent; Z79.899 Other long term (current) drug therapy; Z79.51 Long term (current) use of inhaled steroids; Z79.01 Long term (current) use of anticoagulants; F09 Unspecified mental disorder due to known physiological condition; B96.89 Other specified bacterial agents as the cause of diseases classified elsewhere; Z74.09 Other reduced mobility; D50.9 Iron deficiency anemia, unspecified
CPT/HCPCS: 36410; 36415; 36600; 70450-TC; 71045-TC; 80048-TC; 80053-TC; 80061-TC; 80076-TC; 80202-TC; 81001; 82550-TC; 82728-TC; 82803-TC; 83540-TC; 83605-TC; 83615-TC; 83735-TC; 83880; 84100-TC; 84484-TC; 85025-TC; 85027-TC; 85378-TC; 85385-TC; 85610-TC; 85730-TC; 86140-TC; 86850-TC; 87040-TC; 87070-TC; 87081-TC; 87086-TC; 92526; 92611-TC; 93307-TC; 93970-TC; 94640-TC; A4216; C9113; C9803; G0378; J0692; J0696; J1100; J1644; J1940; J2185; J2405; J2543; J3490; J7030; J7050; J7060; P9016; U0003